=== PATIENT | female | born 2000 | race Caucasian/White ===

== ENCOUNTER → 2023-04-05 08:09 | Outpatient (BNVA) | payer OTHER, SELFPAY | PROVIDERS: Family Provider Family Medicine; Visit Provider Nurse Practitioner Family | DX: B07.8 Other viral warts (principal); L57.8 Other skin changes due to chronic exposure to nonionizing radiation; D22.62 Melanocytic nevi of left upper limb, including shoulder | CPT/HCPCS: 17110; 99203 ==

== ENCOUNTER → 2023-04-19 11:51 | Outpatient (BNVA) | payer OTHER, SELFPAY | PROVIDERS: Family Provider Family Medicine; Visit Provider Nurse Practitioner Family | DX: B07.8 Other viral warts (principal); L57.8 Other skin changes due to chronic exposure to nonionizing radiation; D22.62 Melanocytic nevi of left upper limb, including shoulder | CPT/HCPCS: 17110; 99213 ==

== ENCOUNTER → 2023-05-04 08:07 | Outpatient (BNVA) | payer OTHER, SELFPAY | PROVIDERS: Family Provider Family Medicine; PCP Family Medicine; Visit Provider Nurse Practitioner Family | DX: B07.8 Other viral warts (principal); L57.8 Other skin changes due to chronic exposure to nonionizing radiation; D22.4 Melanocytic nevi of scalp and neck | CPT/HCPCS: 17110; 99213 ==

== ENCOUNTER 2025-02-16 08:39 | Outpatient (CLI) | payer SELFPAY ==
[2025-02-16 08:48] VITALS: BMI 37.4
[2025-02-16 08:55] VITALS: BP 128/81; PULSE 78
[2025-02-16 09:10] VITALS: BP 134/84; PULSE 77
== END 2025-02-16 10:34 | disposition home or self-care (01) ==
LOC: OPOB 08:40 → OBGYN 08:41
PROVIDERS: PCP Family Medicine; Visit Provider Family Medicine
DX: O26.899 Other specified pregnancy related conditions, unspecified trimester (principal); Z3A.00 Weeks of gestation of pregnancy not specified; R10.9 Unspecified abdominal pain
CPT/HCPCS: 59025; 99211

== ENCOUNTER 2025-02-16 13:20 | Outpatient (CLI) | payer OTHER, SELFPAY ==
[2025-02-16 13:26] VITALS: BMI 37.4
[2025-02-16 13:33] VITALS: BP 136/67; PULSE 75
[2025-02-16 13:46] VITALS: BP 137/76; PULSE 76
[2025-02-16] MEDS: HYDROcodone-acetaminophen 5-325 mg Tablet 1 TAB PO (15:53)
[2025-02-16 15:59] VITALS: BP 141/72; PULSE 83
[2025-02-16 16:31] VITALS: RESP 18; TEMP 36.7
== END 2025-02-16 16:34 | disposition home or self-care (01) ==
LOC: OPOB 13:21 → OBGYN 13:23
PROVIDERS: PCP Family Medicine; Visit Provider Family Medicine
DX: O26.899 Other specified pregnancy related conditions, unspecified trimester (principal); Z3A.00 Weeks of gestation of pregnancy not specified; R10.9 Unspecified abdominal pain
CPT/HCPCS: 59025; 99211; J9999

== ENCOUNTER 2025-02-17 07:00 | Inpatient (IN) | payer SELFPAY ==
[2025-02-17] VITALS (91 sets, daily range): BP systolic 104–161; BP diastolic 52–99; PULSE 72–126; RESP 15–17; TEMP 36.7–36.8; O2SAT 95–97; BMI 37.5
[2025-02-17 01:16] LABS: Hematocrit 36.0 % (36-47); Hemoglobin 12.10 g/dL (11.27-16.99); Mean Corpuscular HGB Conc 33.6 g/dL (30-55); Mean Corpuscular Hemoglobin 26.9 pg (27-33); Mean Corpuscular Volume 80.0 fl (85-98); Nucleated Red Blood Cells % 0 %; Platelet Count 330 10^3/cmm (157-399); Red Blood Count 4.50 10^6/uL (3.85-5.65); White Blood Count 19.41 10^3/uL (3.29-11.43)
[2025-02-17 01:35] LABS: Alanine Aminotransferase 13 U/L (0-33); Albumin Level 3.6 g/dL (3.5-5.2); Alkaline Phosphatase 183 U/L (35-105); Anion Gap 18.7 (5-19); Aspartate Amino Transferase 21 U/L (0-32); Blood Urea Nitrogen 13 mg/dL (6-20); Calcium 8.8 mg/dL (8.5-10.5); Carbon Dioxide 15 mmol/L (22-29); Chloride 104 mmol/L (98-107); Creatinine Clr Calc Pharmacy 133.7069; Globulin 2.8 g/dL (1.3-4.6); Glucose 131 mg/dL (65-115); Osmolality Calculated 278 mOsm/kg (285-295); Potassium 4.7 mmol/L (3.5-5.1); Sodium 133 mmol/L (136-145); Total Protein 6.4 g/dL (6.6-8.7); Uric Acid 7.8 mg/dL (2.4-5.7)
[2025-02-17 01:39] LABS: UPRO/UCREAT Ratio 0.47 mg/mg CR
[2025-02-17] MEDS: ROPivacaine premix 200 MG/100 ML PREMIX 10 MG EPIDURAL (02:49)
--- NOTE | 2025-02-17 09:24 | PM.OPHPUD ---
Labor & Delivery H&P Update Date of Procedure: February 17, 2025 Date H&P Performed: 02/13/25 Changes to previous documentation: The patient presented to the hospital having consistent contractions and making cervical change Admission Diagnosis: 24-year-old 1 para 0 at 38 weeks estimated gestational age Planned procedure: Spontaneous vaginal delivery Other information: The patient is a 38-week female who has had a relatively unremarkable . She has had consistent care. Her blood type is O+. Her antibody screen was negative. Her glucose screen was negative. She is GBS negative. She is rubella nonimmune. The remainder of her infectious disease profile is within normal limits. Over the past couple of days, her contractions have been increasing in strength and frequency. She presented to the hospital twice yesterday with consistent contractions, but not making cervical change. She finally started demonstrating cervical change when she came to the hospital last night. She was also noted to have elevated blood pressures. A preeclamptic workup was performed and she was found to have an elevated protein creatinine ratio. She had no other signs of preeclampsia besides elevated blood pressure. Her blood pressures did resolve spontaneously after her epidural. It looks probable that her blood pressure was more a function of her pain than anything else. Related Problem List Diagnoses 1. 38 weeks gestation of : 2. Preeclampsia: A&P Assessment and plan 1. 38 weeks gestation of : We will continue to manage the patient conservatively as long as she makes progress. Status: Acute 2. Preeclampsia: At this point, the diagnosis of preeclampsia is in question. Since she only has an elevated protein creatinine ratio, but the blood pressure was likely secondary to pain and not to hypertension related to , and she has no other signs of end organ damage she probably does not meet criteria for preeclampsia. Regardless we will continue to monitor her. Since she does not have any severe features, there is no need for magnesium at this time even if without which she does have preeclampsia. Status: Acute PDMP PDMP Reviewed: Not Reviewed
[2025-02-17] MEDS: ROPivacaine premix 200 MG/100 ML PREMIX 13 MG EPIDURAL (10:29)
[2025-02-17] MEDS: oxytocin 30 UNIT/500 ML BAG IV (11:45)
--- NOTE | 2025-02-17 17:01 | PM.DELIVERY ---
Delivery Note: Date of delivery: February 17, 2025 Pre-delivery diagnoses: 24-year-old 1 at 38 weeks estimated gestational age presenting in active labor Post-delivery diagnoses: Status post spontaneous vaginal delivery Procedure: Spontaneous vaginal delivery Delivering Physician: Todd Davidson Estimated blood loss (mL): 150 Pre-Delivery Course: The patient presented to the hospital in active labor. Prior to epidural the patient was having elevated blood pressures multiple times. A preeclamptic workup was done and she was found to have an elevated protein creatinine ratio. An epidural was placed. Her blood pressure improved without intervention. She had spontaneous rupture of membranes 8 to 9 hours prior to delivery of the infant. The patient's contractions began to space out after epidural. Pitocin augmentation was added. She progressed to complete without difficulty. Delivery: DELIVERY: The patient progressed to complete without difficulty. She delivered a female with a weight of 7 pounds 1 ounce with Apgars of 8, 8. The baby was delivered from the MARY position and placed on the mother's abdomen. The cord was then clamped and cut. There was no nuchal cord. There was no meconium. The placenta and 3 vessel cord were delivered intact shortly thereafter. The perineum and vaginal vault were carefully examined. First-degree lacerations were noted on the labia minora on both the left and right side. She also had a very superficial posterior midline vaginal tear. The labial minora tears were repaired with 3-0 Vicryl in usual fashion. Both the mother and the baby were in stable condition. Post-Delivery Status: Good A&P Assessment and plan 1. 38 weeks gestation of : I anticipate routine care. 2. Spontaneous vaginal delivery: PDMP PDMP Reviewed: Not Reviewed Coding Level of Care Code Acute Code for Chg Fwd Diagnoses 38 weeks gestation of Z3A.38 Spontaneous vaginal delivery O80
[2025-02-17] MEDS: lidocaine 2% INJ 20 mL INJECTION (18:14)
[2025-02-18 00:30] VITALS: BP 115/56; PULSE 91; RESP 16
[2025-02-18 02:30] VITALS: BP 125/71; PULSE 76; RESP 15
[2025-02-18 04:01] LABS: Hematocrit 30.5 % (36-47); Hemoglobin 10.10 g/dL (11.27-16.99); Mean Corpuscular HGB Conc 33.1 g/dL (30-55); Mean Corpuscular Hemoglobin 27.3 pg (27-33); Mean Corpuscular Volume 82.4 fl (85-98); Platelet Count 257 10^3/cmm (157-399); Red Blood Count 3.70 10^6/uL (3.85-5.65); White Blood Count 19.66 10^3/uL (3.29-11.43)
[2025-02-18] MEDS: PRENATAL VIT NO.130/IRON/FOLIC 1 EACH TABLET PO (06:01)
--- NOTE | 2025-02-18 08:11 | P.DS_ITS ---
Discharge Providers CULTURAL HISTORIAN Date of Admission: 02/17/25 07:00 Date of Discharge: 02/18/25 Attending Provider at Admission: Todd Davidson MD Attending Provider at Discharge: Todd Davidson MD Primary Care Provider: Todd Davidson MD Diagnoses at Discharge Discharge Diagnosis 1. 38 weeks gestation of : 2. Spontaneous vaginal delivery: Reason for Visit Reason for Visit: contractions Hospital Course Hospital Course The patient presented to the hospital in active labor. An epidural was placed. Spontaneous rupture membranes occurred. Her labor was augmented with Pitocin. She progressed to complete without difficulty. Her delivery was relatively unremarkable. She had tears on her labia minora bilaterally as well as her minor tears. Her bleeding was within normal limits. Her pain was well- controlled. Breast-feeding was overall good. There are no concerns. Information Peripartum Data: Delivery Method: Vaginal Physical Exam Narrative: The patient is alert. She appears comfortable. Her heart has a regular rate and rhythm with no murmurs appreciated. Lungs are clear to auscultation bilaterally. Her fundus is firm and below the umbilicus. Urinary Catheter Management: Latex Free: Cath Placed During This Visit: yes, but has since been removed by the nurse Reason for Continuing Indwelling Catheter: Decision to DC Catheter Urinary Catheter Date of Insertion: 02/17/25 Urinary Catheter Time of Insertion: 03:30 Date Urinary Catheter Removed: 02/17/25 Time Urinary Catheter Discontinued: 15:00 Discharge Data Studies Completed and Pending Pending at discharge Category Date Time Status High Risk PP Hemorrhage Stat Lab 02/17/25 05:49 Received Laboratory Results WBC 19.66 10^3/uL (3.29-11.43) H 02/18/25 03:50 RBC 3.70 10^6/uL (3.85-5.65) L 02/18/25 03:50 Hgb 10.10 g/dL (11.27-16.99) L 02/18/25 03:50 Hct 30.5 % (36-47) L 02/18/25 03:50 MCV 82.4 fl (85-98) L 02/18/25 03:50 MCH 27.3 pg (27-33) 02/18/25 03:50 MCHC 33.1 g/dL (30-55) 02/18/25 03:50 RDW 13.9 % (12.1-15.1) 02/18/25 03:50 Plt Count 257 10^3/cmm (157-399) 02/18/25 03:50 MPV 9.8 fL (7.4-10.4) 02/18/25 03:50 Neut % (Auto) 86.3 % 02/17/25 01:00 ETL INFORMATICA DEVELOPER Lymph % (Auto) 8.2 % 02/17/25 01:00 ETL INFORMATICA DEVELOPER Nance % (Auto) 4.7 % 02/17/25 01:00 ETL INFORMATICA DEVELOPER Eos % (Auto) 0.0 % 02/17/25 01:00 ETL INFORMATICA DEVELOPER Baso % (Auto) 0.2 % 02/17/25 01:00 ETL INFORMATICA DEVELOPER Neut # (Auto) 16.76 10^3/uL (1.8-7.7) H 02/17/25 01:00 ETL INFORMATICA DEVELOPER Lymph # (Auto) 1.6 10^3/uL (0.8-4.8) 02/17/25 01:00 ETL INFORMATICA DEVELOPER Nance # (Auto) 0.9 10^3/uL (0.2-0.9) 02/17/25 01:00 ETL INFORMATICA DEVELOPER Eos # (Auto) 0.0 10^3/uL (0.0-0.8) 02/17/25 01:00 ETL INFORMATICA DEVELOPER Baso # (Auto) 0.0 10^3/uL (0.0-0.1) 02/17/25 01:00 ETL IN[employer]ICA DEVELOPER Nucleated RBC % (auto) 0 % 02/17/25 01:00 ETL INFORMATICA DEVELOPER Nucleated RBCs # 0.0 /100WBC 02/17/25 01:00 ETL IN[employer] DEVELOPER Sodium 133 mmol/L (136-145) L 02/17/25 01:00 ETL INFORMATICA DEVELOPER Potassium 4.7 mmol/L (3.5-5.1) 02/17/25 01:00 ETL IN[employer] DEVELOPER Chloride 104 mmol/L (98-107) 02/17/25 01:00 ETL [employer] DEVELOPER Carbon Dioxide 15 mmol/L (22-29) L 02/17/25 01:00 ETL IN[employer]ICA DEVELOPER Anion Gap 18.7 (5-19) 02/17/25 01:00 ETL INFORMATICA DEVELOPER BUN 13 mg/dL (6-20) 02/17/25 01:00 ETL INFORMATICA DEVELOPER Creatinine 0.9 mg/dL (0.5-0.9) 02/17/25 01:00 ETL INFORMATICA DEVELOPER GFR Calculation 76.3 mL/min (90-130) L 02/17/25 01:00 ETL INFORMATICA DEVELOPER Glucose 131 mg/dL (65-115) H 02/17/25 01:00 ETL INFORMATICA DEVELOPER Calculated Osmolality 278 mOsm/kg (285-295) L 02/17/25 01:00 ETL INFORMATICA DEVELOPER Uric Acid 7.8 mg/dL (2.4-5.7) H 02/17/25 01:00 ETL IN[employer] DEVELOPER Calcium 8.8 mg/dL (8.5-10.5) 02/17/25 01:00 ETL IN[employer] DEVELOPER Total Bilirubin 0.3 mg/dL (0.15-1.2) 02/17/25 01:00 ETL INFORMATICA DEVELOPER AST 21 U/L (0-32) 02/17/25 01:00 ETL INFORMATICA DEVELOPER ALT 13 U/L (0-33) 02/17/25 01:00 ETL INFORMATICA DEVELOPER Alkaline Phosphatase 183 U/L (35-105) H 02/17/25 01:00 ETL INFORMATICA DEVELOPER Total Protein 6.4 g/dL (6.6-8.7) L 02/17/25 01:00 ETL INFORMATICA DEVELOPER Albumin 3.6 g/dL (3.5-5.2) 02/17/25 01:00 ETL INFORMATICA DEVELOPER Globulin 2.8 g/dL (1.3-4.6) 02/17/25 01:00 ETL INFORMATICA DEVELOPER U Random Total Protein 149 mg/dL 02/17/25 01:00 ETL INFORMATICA DEVELOPER Urine Creatinine 316 mg/dL (28-217) H 02/17/25 01:00 ETL INFORMATICA DEVELOPER Protein/Creatinin Ratio 0.47 mg/mg CR 02/17/25 01:00 ETL INFORMATICA DEVELOPER Blood Type O Positive 02/17/25 01:00 ETL INFORMATICA DEVELOPER Rho(D) Type Rh positive 02/17/25 01:00 ETL INFORMATICA DEVELOPER Antibody Screen Negative 02/17/25 01:00 ETL INFORMATICA DEVELOPER Vitals Last Vital Signs Temp 98.3 F 02/17/25 13:30 Pulse 76 02/18/25 02:30 Resp 15 02/18/25 02:30 BP 125/71 02/18/25 02:30 Pulse Ox 97 02/17/25 20:30 O2 Del Method Room Air 02/17/25 00:56 Results Labs OB ([facility]): Blood Type O Positive 02/17/25 Antibody Screen Negative 02/17/25 Hct, (36-47) 30.5 % L Today Hgb, (11.27-16.99) 10.10 g/dL L Today Rho(D) Type Rh positive 02/17/25 Plt Count, (157-399) 257 10^3/cmm Today Uric Acid, (2.4-5.7) 7.8 mg/dL H 02/17/25 Discharge Plan Discharge Patient Disposition: Home Condition: Stable Prescriptions: New ibuprofen 800 mg Tablet 800 mg PO TID Qty: 45 0RF Continued 28-800 mg-mcg Tablet 1 tab PO DAILY Discharge Order = DC NOW: Discharge Order (Routine); Ordered 02/18/25 Ordered By: Todd Davidson Referrals: Todd Davidson MD [Primary Care Provider, [facility]] - 6 Weeks Discharge Diet: Usual diet Discharge Activity: Limit activity as instructed Patient Instructions: Opioid Safety, Patient Portal & Omer Instructions Discharge Attestations CULTURAL HISTORIAN Time Spent in Discharge Care*: less than 30 min Coding Level of Care Code Acute Code for Chg Fwd Diagnoses 38 weeks gestation of Z3A.38 Spontaneous vaginal delivery O80
--- NOTE | 2025-02-18 08:11 | PM.OBGYDC ---
Discharge Providers VP INTEGRATION Date of Admission: 02/17/25 07:00 Date of Discharge: 02/18/25 Attending Provider at Admission: Todd Davidson MD Attending Provider at Discharge: Todd Davidson MD Primary Care Provider: Todd Davidson MD Diagnoses at Discharge Discharge Diagnosis 1. 38 weeks gestation of : 2. Spontaneous vaginal delivery: Reason for Visit Reason for Visit: contractions Hospital Course Hospital Course The patient presented to the hospital in active labor. An epidural was placed. Spontaneous rupture membranes occurred. Her labor was augmented with Pitocin. She progressed to complete without difficulty. Her delivery was relatively unremarkable. She had tears on her labia minora bilaterally as well as her minor tears. Her bleeding was within normal limits. Her pain was well-controlled. Breast-feeding was overall good. There are no concerns. Information Peripartum Data: Delivery Method: Vaginal Physical Exam Narrative: The patient is alert. She appears comfortable. Her heart has a regular rate and rhythm with no murmurs appreciated. Lungs are clear to auscultation bilaterally. Her fundus is firm and below the umbilicus. Urinary Catheter Management: Latex Free: Cath Placed During This Visit: yes, but has since been removed by the nurse Reason for Continuing Indwelling Catheter: Decision to DC Catheter Urinary Catheter Date of Insertion: 02/17/25 Urinary Catheter Time of Insertion: 03:30 Date Urinary Catheter Removed: 02/17/25 Time Urinary Catheter Discontinued: 15:00 Discharge Data Studies Completed and Pending Pending at discharge Category Date Time Status High Risk PP Hemorrhage Stat Lab 02/17/25 05:49 Received Laboratory Results WBC 19.66 10^3/uL (3.29-11.43) H 02/18/25 03:50 RBC 3.70 10^6/uL (3.85-5.65) L 02/18/25 03:50 Hgb 10.10 g/dL (11.27-16.99) L 02/18/25 03:50 Hct 30.5 % (36-47) L 02/18/25 03:50 MCV 82.4 fl (85-98) L 02/18/25 03:50 MCH 27.3 pg (27-33) 02/18/25 03:50 MCHC 33.1 g/dL (30-55) 02/18/25 03:50 RDW 13.9 % (12.1-15.1) 02/18/25 03:50 Plt Count 257 10^3/cmm (157-399) 02/18/25 03:50 MPV 9.8 fL (7.4-10.4) 02/18/25 03:50 Neut % (Auto) 86.3 % 02/17/25 01:00 BANQUET STEWARDESS Lymph % (Auto) 8.2 % 02/17/25 01:00 BANQUET STEWARDESS [place] % (Auto) 4.7 % 02/17/25 01:00 BANQUET STEWARDESS Eos % (Auto) 0.0 % 02/17/25 01:00 BANQUET STEWARDESS Baso % (Auto) 0.2 % 02/17/25 01:00 BANQUET STEWARDESS Neut # (Auto) 16.76 10^3/uL (1.8-7.7) H 02/17/25 01:00 BANQUET STEWARDESS Lymph # (Auto) 1.6 10^3/uL (0.8-4.8) 02/17/25 01:00 BANQUET STEWARDESS [place] # (Auto) 0.9 10^3/uL (0.2-0.9) 02/17/25 01:00 BANQUET STEWARDESS Eos # (Auto) 0.0 10^3/uL (0.0-0.8) 02/17/25 01:00 BANQUET STEWARDESS Baso # (Auto) 0.0 10^3/uL (0.0-0.1) 02/17/25 01:00 BANQUET STEWARDESS Nucleated RBC % (auto) 0 % 02/17/25 01:00 BANQUET STEWARDESS Nucleated RBCs # 0.0 /100WBC 02/17/25 01:00 BANQUET STEWARDESS Sodium 133 mmol/L (136-145) L 02/17/25 01:00 BANQUET STEWARDESS Potassium 4.7 mmol/L (3.5-5.1) 02/17/25 01:00 BANQUET STEWARDESS Chloride 104 mmol/L (98-107) 02/17/25 01:00 BANQUET STEWARDESS Carbon Dioxide 15 mmol/L (22-29) L 02/17/25 01:00 BANQUET STEWARDESS Anion Gap 18.7 (5-19) 02/17/25 01:00 BANQUET STEWARDESS BUN 13 mg/dL (6-20) 02/17/25 01:00 BANQUET STEWARDESS Creatinine 0.9 mg/dL (0.5-0.9) 02/17/25 01:00 BANQUET STEWARDESS GFR Calculation 76.3 mL/min (90-130) L 02/17/25 01:00 BANQUET STEWARDESS Glucose 131 mg/dL (65-115) H 02/17/25 01:00 BANQUET STEWARDESS Calculated Osmolality 278 mOsm/kg (285-295) L 02/17/25 01:00 BANQUET STEWARDESS Uric Acid 7.8 mg/dL (2.4-5.7) H 02/17/25 01:00 BANQUET STEWARDESS Calcium 8.8 mg/dL (8.5-10.5) 02/17/25 01:00 BANQUET STEWARDESS Total Bilirubin 0.3 mg/dL (0.15-1.2) 02/17/25 01:00 BANQUET STEWARDESS AST 21 U/L (0-32) 02/17/25 01:00 BANQUET STEWARDESS ALT 13 U/L (0-33) 02/17/25 01:00 BANQUET STEWARDESS Alkaline Phosphatase 183 U/L (35-105) H 02/17/25 01:00 BANQUET STEWARDESS Total Protein 6.4 g/dL (6.6-8.7) L 02/17/25 01:00 BANQUET STEWARDESS Albumin 3.6 g/dL (3.5-5.2) 02/17/25 01:00 BANQUET STEWARDESS Globulin 2.8 g/dL (1.3-4.6) 02/17/25 01:00 BANQUET STEWARDESS U Random Total Protein 149 mg/dL 02/17/25 01:00 BANQUET STEWARDESS Urine Creatinine 316 mg/dL (28-217) H 02/17/25 01:00 BANQUET STEWARDESS Protein/Creatinin Ratio 0.47 mg/mg CR 02/17/25 01:00 BANQUET STEWARDESS Blood Type O Positive 02/17/25 01:00 BANQUET STEWARDESS Rho(D) Type Rh positive 02/17/25 01:00 BANQUET STEWARDESS Antibody Screen Negative 02/17/25 01:00 BANQUET STEWARDESS Vitals Last Vital Signs Temp 98.3 F 02/17/25 13:30 Pulse 76 02/18/25 02:30 Resp 15 02/18/25 02:30 BP 125/71 02/18/25 02:30 Pulse Ox 97 02/17/25 20:30 O2 Del Method Room Air 02/17/25 00:56 Results Labs OB ([facility]): Blood Type O Positive 02/17/25 Antibody Screen Negative 02/17/25 Hct, (36-47) 30.5 % L Today Hgb, (11.27-16.99) 10.10 g/dL L Today Rho(D) Type Rh positive 02/17/25 Plt Count, (157-399) 257 10^3/cmm Today Uric Acid, (2.4-5.7) 7.8 mg/dL H 02/17/25 Discharge Plan Discharge Patient Disposition: Home Condition: Stable Prescriptions: New ibuprofen 800 mg Tablet 800 mg PO TID Qty: 45 0RF Continued 28-800 mg-mcg Tablet 1 tab PO DAILY Discharge Order = DC NOW: Discharge Order (Routine); Ordered 02/18/25 Ordered By: Todd Davidson Referrals: Todd Davidson MD [Primary Care Provider, [facility]] - 6 Weeks Discharge Diet: Usual diet Discharge Activity: Limit activity as instructed Patient Instructions: Opioid Safety, Patient Portal & Omer Instructions Discharge Attestations VP INTEGRATION Time Spent in Discharge Care*: less than 30 min Coding Level of Care Code Acute Code for Chg Fwd Diagnoses 38 weeks gestation of Z3A.38 Spontaneous vaginal delivery O80
[2025-02-18 10:00] VITALS: BP 127/96; PULSE 74; RESP 16; TEMP 36.8
--- NOTE | 2025-02-18 13:28 | ANE.PACU2 ---
Inpatient post-anesthesia follow up: Airway intact: Yes Vital signs: Temperature 98.2 F Pulse Rate 72 Respiratory Rate 16 Blood Pressure 120/72 Pulse Oximetry 100 Oxygen Delivery Me thod Room Air Oxygen Flow Rate Fraction of Inspir ed Oxygen Hydration adequate: Yes Nausea and vomiting: No Pain level: 1 Mental status: Baseline Epidural Start/End: Epidural Start Date: 02/17/25 Epidural Start Time: 02:40 Epidural End Date: 02/18/25 Epidural End Time: 17:01
[2025-02-18 16:00] VITALS: BP 126/69; PULSE 76; RESP 18; TEMP 36.9
[2025-02-18 18:17] VITALS: BP 120/72; PULSE 72; RESP 16; TEMP 36.8; O2SAT 100
[2025-02-18 18:18] VITALS: BP 120/72; PULSE 72; RESP 16; TEMP 36.8; O2SAT 100
[2025-02-20 08:30] LABS: High Risk PP Hemorrhage BBK Notified
== END 2025-02-18 18:40 | disposition home or self-care (01) | DRG 807 ==
LOC: OPOB 16:17 → OBGYN 16:17
PROVIDERS: Admitting Provider Family Medicine; PCP Family Medicine; Visit Provider Family Medicine
DX: O99.42 Diseases of the circulatory system complicating childbirth (principal); Z37.0 Single live birth; Z3A.38 38 weeks gestation of pregnancy; O70.0 First degree perineal laceration during delivery; R03.0 Elevated blood-pressure reading, without diagnosis of hypertension; O99.892 Other specified diseases and conditions complicating childbirth; O12.14 Gestational proteinuria, complicating childbirth
CPT/HCPCS: 36415; 51702; 59025; 59409; 80053; 82570; 84156; 84550; 85025; 85027; 86850; 86900; 99211; J2590; J2795; J7120; J7121; J9999

== ENCOUNTER 2025-02-19 21:26 | Observation (INO) | payer OTHER, SELFPAY ==
[2025-02-19] VITALS (10 sets, daily range): BP systolic 128–155; BP diastolic 58–105; PULSE 75–99; RESP 16–26; TEMP 36.9; O2SAT 94–100
--- OUTSIDE RECORDS SUMMARY | 2025-02-19 21:31 | XMS_ITS | Continuity of Care Document ---
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 Plan of Treatment Reminders Order Date Submit Date Provider Last Modified By Organization Details Last Modified Time Details Appointments POST-PA RTUM VISIT 025 11:00AM Delia Allred MD Not available Not available Not available Lab None recorde d. Referral None recorde d. Procedures None recorde d. Surgeries None recorde d. Imaging None recorde d. Medication Orders None recorde d. Patient TargetsNo targets recorded. Patient InstructionsNo instructions recorded. Reason for Referral None Reported. Results Created Date Observation Date Name Description Value Unit Range Abnormal Flag Note LastModifiedBy Organization Detail LastModifiedTime 08/29/1908/29/2024 URINA LYSIS , COMPL ETE color YELLOW yellow normal Not Available [address], [address], 08/30/2024 00:55:17 08/29/19 25 08/29/2024 URINA LYSIS , COMPL ETE appearance CLEAR clear normal Not Available [facility] [address], [address], 08/30/2024 00:55:17 08/29/19 25 08/29/2024 URINA LYSIS , COMPL ETE specific gravity 1.013 1.001- 1.035 normal Not Available [facility] [address] [place], [address], 08/30/2024 00:55:17 08/29/1908/29/2024 URINA LYSIS , COMPL ETE pH 8.0 5.0-8. 0 normal Not Available [facility] [address], [address], 08/30/2024 00:55:17 08/29/1908/29/2024 URINA LYSIS , COMPL ETE glucose NEGATI VE negati ve normal Not Available [facility] [address], [address], 08/30/2024 00:55:17 08/29/1908/29/2024 URINA LYSIS , COMPL ETE bilirubin NEGATI VE negati ve normal Not Available [facility] [address], [address], 08/30/2024 00:55:17 08/29/1908/29/2024 URINA LYSIS , COMPL ETE ketones NEGATI VE negati ve normal Not Available [facility] [address], [address], 08/30/2024 00:55:17 08/29/1908/29/2024 URINA LYSIS , COMPL ETE occult blood NEGATI VE negati ve normal Not Available [facility] [address], [address], 08/30/2024 00:55:17 08/29/1908/29/2024 URINA LYSIS , COMPL ETE protein NEGATI VE negati ve normal Not Available [facility] [address], [address], 08/30/2024 00:55:17 08/29/1908/29/2024 URINA LYSIS , COMPL ETE nitrite NEGATI VE negati ve normal Not Available [facility] [address], [address], 08/30/2024 00:55:17 08/29/1908/29/2024 URINA LYSIS , COMPL ETE leukocyte esterase NEGATI VE negati ve normal Not Available [address], [address], 08/30/2024 00:55:17 08/29/1908/29/2024 URINA LYSIS , COMPL ETE WBC NONE SEEN /hpf < or = 5 normal Not Available [address], [address], 08/30/2024 00:55:17 08/29/1908/29/2024 URINA LYSIS , COMPL ETE RBC NONE SEEN /hpf < or = 2 normal Not Available [address], [address], 08/30/2024 00:55:17 08/29/19 25 08/29/2024 URINA LYSIS , COMPL ETE squamous epithelial cells 10-20 /hpf < or = 5 abnormal Not Available [address], [address], 08/30/2024 00:55:17 08/29/1908/29/2024 URINA LYSIS , COMPL ETE bacteria MODERA TE /hpf none seen abnormal Not Available [address], [address], 08/30/2024 00:55:17 08/29/1908/29/2024 URINA LYSIS , COMPL ETE hyaline cast 0-5 /lpf none seen abnormal Not Available [address], [address], 08/30/2024 00:55:17 08/29/1908/29/2024 URINA LYSIS , COMPL ETE note This urine was jocelin zed for the prese nce of WBC, RBC, bacte rob, casts , and other forme d eleme nts. Only those eleme nts seen were repor derrick. Not Available [address], [address], 08/30/2024 00:55:17 08/29/1908/29/2024 CBC (INCL UDES DIFF/ PLT) white blood cell count 9.1 thous and/u L 3.8-10 .8 normal Not Available [facility] [address], [address], 08/30/2024 00:55:19 08/29/1908/29/2024 CBC (INCL UDES DIFF/ PLT) red blood cell count 4.61 dickson on/uL 3.80-5 .10 normal Not Available [address], [address], 08/30/2024 00:55:19 08/29/1908/29/2024 CBC (INCL UDES DIFF/ PLT) hemoglobin 12.9 g/dL 11.7-1 5.5 normal Not Available [address], [address], 08/30/2024 00:55:19 08/29/1908/29/2024 CBC (INCL UDES DIFF/ PLT) hematocrit 40.4 % 35.0-4 5.0 normal Not Available [address], [address], 08/30/2024 00:55:19 08/29/1908/29/2024 CBC (INCL UDES DIFF/ PLT) MCV 87.6 fL 80.0-1 00.0 normal Not Available [facility] [address], [address], 08/30/2024 00:55:19 08/29/1908/29/2024 CBC (INCL UDES DIFF/ PLT) MCH 28.0 pg 27.0-3 3.0 normal Not Available [facility] [address], [address], 08/30/2024 00:55:19 08/29/1908/29/2024 CBC (INCL UDES DIFF/ PLT) MCHC 31.9 g/dL 32.0-3 6.0 low For adult s, a sligh t decre ase in the calcu lated MCHC value (in the range of 30 to 32 g/dL) is most likel y not clini philippe signi leonard t; haim er, it shoul d be inter prete d with cauti on in [facility] n with other red cell yuri eters and the patie nt's clini mirna condi tion. Not Available [facility] [address], [address], 08/30/2024 00:55:19 08/29/1908/29/2024 CBC (INCL UDES DIFF/ PLT) RDW 13.3 % 11.0-1 5.0 normal Not Available [address], [address], 08/30/2024 00:55:19 08/29/1908/29/2024 CBC (INCL UDES DIFF/ PLT) platelet count 281 thous and/u L 140-40 0 normal Not Available [facility] [address], [address], 08/30/2024 00:55:19 08/29/1908/29/2024 CBC (INCL UDES DIFF/ PLT) MPV 9.7 fL 7.5-12 .5 normal Not Available [facility] [address], [address], 08/30/2024 00:55:19 08/29/1908/29/2024 CBC (INCL UDES DIFF/ PLT) absolute neutrophils 7280 cells /uL 1500-7 800 normal Not Available [facility] [address], [address], 08/30/2024 00:55:19 08/29/1908/29/2024 CBC (INCL UDES DIFF/ PLT) absolute lymphocytes 1247 cells /uL 850-39 00 normal Not Available [address], [address], 08/30/2024 00:55:19 08/29/1908/29/2024 CBC (INCL UDES DIFF/ PLT) absolute monocytes 455 cells /uL 200-95 0 normal Not Available [address], [address], 08/30/2024 00:55:19 08/29/1908/29/2024 CBC (INCL UDES DIFF/ PLT) absolute eosinophils 82 cells /uL 15-500 normal Not Available [address], [address], 08/30/2024 00:55:19 08/29/1908/29/2024 CBC (INCL UDES DIFF/ PLT) absolute basophils 36 cells /uL 0-200 normal Not Available [facility] [address], [address], 08/30/2024 00:55:19 08/29/1908/29/2024 CBC (INCL UDES DIFF/ PLT) neutrophils 80 % normal Not Available [address], [address], 08/30/2024 00:55:19 08/29/1908/29/2024 CBC (INCL UDES DIFF/ PLT) lymphocytes 13.7 % normal Not Available [facility] [address], [address], 08/30/2024 00:55:19 08/29/1908/29/2024 CBC (INCL UDES DIFF/ PLT) monocytes 5.0 % normal Not Available [facility] [address], [address], 08/30/2024 00:55:19 08/29/19 25 08/29/2024 CBC (INCL UDES DIFF/ PLT) eosinophils 0.9 % normal Not Available [address], [address], 08/30/2024 00:55:19 08/29/19 25 08/29/2024 CBC (INCL UDES DIFF/ PLT) basophils 0.4 % normal Not Available [address], [address], 08/30/2024 00:55:19 08/29/1908/29/2024 HEPAT ITIS B SURFA CE ANTIG EN W/REF L CONFI RM hepatitis B surface antigen NON-RE ACTIVE non-re active normal For addit ional infor yuliya martines, mariel e refer to http: //[facility] stdia gnost ics.c om/fa q/FAQ 202 (This link is being provi ded for infor matio nal/ educa germán l purpo ses only. ) Not Available [address], [address], 08/30/2024 00:55:19 08/29/1908/29/2024 HEPAT ITIS C AB W/REF L TO HCV RNA, QN, PCR hepatitis C antibody NON-RE ACTIVE non-re active normal HCV antib phillip was non-r eacti ve. There is no labor atory evide nce of HCV infec tion. In most cases , no furth er actio n is requi red. Howev er, if recen t HCV expos ure is suspe cted, a test for HCV RNA (test code 61825 ) is sugge sted. For addit ional infor matmaisha n pleas e refer to http: //[facility] conrad.que stdia gnost ics.c om/fa q/FAQ 22v1 (This link is being provi ded for infor matio nal/ educa germán l purpo ses only. ) Not Available [address], [address], 08/30/2024 00:55:21 08/29/1908/29/2024 RUBEL LA AB (IGG) , IMMUN E STATU S rubella Ab (IgG), immune status <0.90 index low Index Inter preta tion ----- ----- ----- ---- <0.90 Not consi stent with immun ity 0.90- 0.99 Equiv ocal > or = 1.00 Consi stent with immun ity The prese nce of rubel la IgG antib phillip sugge sts immun izati on or past or curre nt infec tion with rubel la virus . Not Available [facility] [address] [place], [address], 08/30/2024 00:55:21 08/29/1908/29/2024 HIV 1/2 ANTIG EN/AN TIBOD Y,FOU RTH GENER ATION W/RFL HIV Ag/Ab, 4TH gen NON-RE ACTIVE non-re active normal HIV-1 antig en and HIV-1 /HIV- 2 antib odies were not detec derrick. There is no labor atory evide nce of HIV infec tion. PLEAS E NOTE: This infor matio n has been discl osed to you from recor ds whose confi denti ality may be prote cted by state law. If your state requi res such prote ction , then the state law prohi bits you from abhijit hernandez furth er discl osure of the infor matio n witho ut the speci fic writt en conse nt of the perso n to whom it perta ins, or as other cadena permi tted by law. A gener al autho rizat ion for the relea se of medic al or other infor matio n is NOT suffi cient for this purpo se. For addit ional infor matio n pleas e refer to http: //tara mengque stdia gnost [facility].c om/fa q/FAQ 106 (This link is being provi ded for infor matio nal/ educa germán l purpo ses only. ) The perfo rmanc e of this assay has not been clini philippe valid ated in patie nts less than 2 years old. Not Available [facility] [address], [address], 08/30/2024 00:55:22 08/29/1908/29/2024 RPR (DX) W/REF L TITER AND T. PALLI DUM AB, IA RPR (DX) w/refl titer and confirmatory testing NON-RE ACTIVE non-re active normal No labor atory evide nce of syphi lis. If recen t expos ure is suspe cted, submi t a new sampl e in 2-4 weeks . Not Available [facility] [address], [address], 08/30/2024 00:55:23 08/29/1908/29/2024 ANTIB PHILLIP SCREE N, RBC W/REF L ID, TITER AND AG antibody screen, RBC w/refl id, titer and Ag NO ANTIBO DIES DETECT ED normal Refer ence range No antib odies detec derrick This assay is a scree rowan test for the detec tion of red blood cell antib odies . The test is not to be used for pretr ansfu arnoldo scree rowan or for the medic al manag ement of an alloi mmuni zed pregn richie. Not Available [facility] [address] [place], [address], 08/30/2024 00:55:24 08/29/1908/29/2024 ABO GROUP AND RH TYPE ABO group O Not Available [facility] [address] [place], [address], 08/30/2024 00:55:25 08/29/1908/29/2024 ABO GROUP AND RH TYPE Rh type RH(D) POSITI VE For addit ional infor mariel crawford e refer to http: //[facility] braulio Pederson stDia gnost ics.c om/fa q/FAQ 111 (This link is being provi ded for infor yuliya lezama/ analy ba purpo ses only. ) Not Available [facility] [address] [address] [address], [place], [address], 08/30/2024 00:55:25 08/29/1908/29/2024 DRUG MONIT OR, PANEL 1, SCREE N, URINE amphetamines NEGATI VE NG/mL <500 See Note A See Note A Not Available [facility] [address] [address] [address], [place], [address], 08/30/2024 00:55:26 08/29/1908/29/2024 DRUG MONIT OR, PANEL 1, SCREE N, URINE barbiturates NEGATI VE NG/mL <300 See Note A See Note A Not Available [facility] [address] [address] [address], [place], [address], 08/30/2024 00:55:26 08/29/1908/29/2024 DRUG MONIT OR, PANEL 1, SCREE N, URINE benzodiazepi elias NEGATI VE NG/mL <100 See Note A See Note A Not Available [facility] [address] [address] [address], [place], [address], 08/30/2024 00:55:26 08/29/1908/29/2024 DRUG MONIT OR, PANEL 1, SCREE N, URINE cocaine metabolite NEGATI VE NG/mL <150 See Note A See Note A Not Available [facility] [address] [address] [address], [place], [address], 08/30/2024 00:55:26 08/29/1908/29/2024 DRUG MONIT OR, PANEL 1, SCREE N, URINE marijuana metabolite NEGATI VE NG/mL <20 See Note A See Note A Not Available [facility] [address] [address] [address], [place], [address], 08/30/2024 00:55:26 08/29/1908/29/2024 DRUG MONIT OR, PANEL 1, SCREE N, URINE methadone metabolite NEGATI VE NG/mL <100 See Note A See Note A Not Available [address] [address] [address], [place], [address], 08/30/2024 00:55:26 08/29/1908/29/2024 DRUG MONIT OR, PANEL 1, SCREE N, URINE opiates NEGATI VE NG/mL <100 See Note A See Note A Not Available [address] [address] [address], [place], [address], 08/30/2024 00:55:26 08/29/1908/29/2024 DRUG MONIT OR, PANEL 1, SCREE N, URINE oxycodone NEGATI VE NG/mL <100 See Note A See Note A Not Available [address] [address] [address], [place], [address], 08/30/2024 00:55:26 08/29/1908/29/2024 DRUG MONIT OR, PANEL 1, SCREE N, URINE phencyclidin e NEGATI VE NG/mL <25 See Note A See Note A Not Available [address] [address] [address], [place], [address], 08/30/2024 00:55:26 08/29/1908/29/2024 DRUG MONIT OR, PANEL 1, SCREE N, URINE creatinine 75.8 mg/dL > or = 20.0 Not Available [address] [address] [address], [place], [address], 08/30/2024 00:55:26 08/29/19 25 08/29/2024 DRUG MONIT OR, PANEL 1, SCREE N, URINE pH 8.0 4.5-9. 0 Not Available [address] [address] [address], [place], [address], 08/30/2024 00:55:26 08/29/19 25 08/29/2024 DRUG MONIT OR, PANEL 1, SCREE N, URINE oxidant NEGATI VE mcg/m L <200 Not Available [address] [address] [place], [address], 08/30/2024 00:55:26 08/29/1908/29/2024 DRUG MONIT ORING TEMPL ATE notes and comments This drug testi ng is for medic al treat ment only. Jocelin sis was perfo rmed as non-f orens ic testi ng and these resul ts shoul d be used only by [facility] provi ders to rende r diagn osis or treat ment, or to monit or progr ess of medic al condi tions . Note A: The resul ts are presu mptiv e; based only on tu irving, and they have not been confi rmed by a defin itive allen bell. [facility] Provi ders needi ng Inter preta tion nae tance , pleas e conta ct us at 1.877 .40.R XTOX (1.87 [phone] ) M-F, 8am to 10pm EST Not Available [facility] [address] [address] [address] , [place], [address], 08/30/2024 00:55:27 08/29/1908/29/2024 CULTU RE, URINE , ROUTI NE culture, urine, routine SEE NOTE CULTU RE, URINE , ROUTI NE Micro Numbe r: [id number] Test Statu s: Final Speci men Sourc e: Urine Speci men Quali ty: Adequ ate Resul t: Mixed genit al glen isola derrick. These super ficia l bacte rob are not indic ative of a urina ry tract infec tion. No furth er organ ism ident ifica tion is warra nted on this speci men. If clini philippe indic ated, recol lect clean -catc h, mid-s tream urine and trans wendy immed iatel y to Urine Cultu re Trans port Tube. Not Available [facility] [address] [address] , [place], [address], 08/30/2024 00:55:27 08/29/1908/30/2024 THINP REP TIS PAP (REFL ) HPV MRNA E6/E7 clinical information: normal Pregn ant Not Available [address], [address], 08/30/2024 17:04:17 08/29/19 25 08/30/2024 THINP REP TIS PAP (REFL ) HPV MRNA E6/E7 LMP: normal NA Not Available [address], [address], 08/30/2024 17:04:17 08/29/19 25 08/30/2024 THINP REP TIS PAP (REFL ) HPV MRNA E6/E7 prev. Pap: normal NA Not Available [address], [address], 08/30/2024 17:04:17 08/29/19 25 08/30/2024 THINP REP TIS PAP (REFL ) HPV MRNA E6/E7 prev. BX: normal NA Not Available [address], [address], 08/30/2024 17:04:17 08/29/19 25 08/30/2024 THINP REP TIS PAP (REFL ) HPV MRNA E6/E7 source: normal Cervi x, Endoc ervix Not Available [address], [address], 08/30/2024 17:04:17 08/29/19 25 08/30/2024 THINP REP TIS PAP (REFL ) HPV MRNA E6/E7 statement of adequacy: normal Satis facto ry for evalu ation . Endoc ervic al/tr ansfo rmati on zone compo nent prese nt. Not Available [address], [address], 08/30/2024 17:04:17 08/29/19 25 08/30/2024 THINP REP TIS PAP (REFL ) HPV MRNA E6/E7 interpretati on/result: normal Cytol ogy Resul ts: Negat juanito for intra epith elial lesio n or joankenney gama . Not Available [address] [address] [place], [address], 08/30/2024 17:04:17 08/29/1908/30/2024 THINP REP TIS PAP (REFL ) HPV MRNA E6/E7 comment: normal This Pap test has been evalu ated with compu matute techn ology . Not Available [facility] [address] [address] [place], [address], 08/30/2024 17:04:17 08/29/1908/30/2024 THINP REP TIS PAP (REFL ) HPV MRNA E6/E7 cytotechnolo gist: normal BES, CT( CP) CT scree rowan locat ion: [address] [place] [address] Not Available [facility] [address] [address] [place], [address], 08/30/2024 17:04:17 08/29/19 25 08/30/2024 THINP REP TIS PAP (REFL ) HPV MRNA E6/E7 comment EXPLA NATOR Y NOTE: The Pap is a scree rowan test for cervi mirna cance r. It is not a diagn ostic test and is subje ct to false negat juanito and false posit juanito resul ts. It is most relia ble when a satis facto ry sampl e, regul lesli obtai cherise, is submi tted with relev ant clini mirna findi ngs and histo ry, and when the Pap resul t is evalu ated along with histo gladys and curre nt clini mirna infor matio n. Not Available [address] [address] [place], [address], 08/30/2024 17:04:17 08/29/1908/28/2024 CT + NG + TV, DNA, urine /swab Chlamydia negati ve Not Available [facility] ([facility]) [address] [place], [address], 08/28/2024 10:07:13 08/29/19 25 08/28/2024 CT + NG + TV, DNA, urine /swab Gonorrhea negati ve Not Available [facility] ([facility]) [address] [place], [address], 08/28/2024 10:07:13 08/29/19 25 08/28/2024 CT + NG + TV, DNA, urine /swab Trichomonas negati ve Not Available [facility] ([facility]) [address] [place], [address], 08/28/2024 10:07:13 09/01/19 25 08/31/2024 rapid strep group A, throa t Strep negati ve Not Available [facility] ([facility]) [address] [place], [address], 08/31/2024 10:22:57 09/18/19 25 09/19/2024 CULTU RE, URINE , ROUTI NE culture, urine, routine SEE NOTE abnormal CULTU RE, URINE , ROUTI NE Micro Numbe r: [id number] Test Statu s: Final Speci men Sourc e: Urine , clean catch Speci men Quali ty: Adequ ate Resul t: Great er than 100,0 00 CFU/m L of Klebs iella pneum oniae K.pne umoni ae ----- ----- ----- - INT ML AMOX/ CLAVU LANAT E S <=2 AMP/S ULBAC ESQUIVEL S 8 CEFAZ GREG NR <=4 2 CEFEP PAMELA S <=0.1 2 CEFTA ZIDIM E S <=1 CEFTR IAXON E S <=0.2 5 CIPRO FLOXA DONALDO S <=0.0 6 GENTA MICIN S <=1 IMIPE NEM S 0.5 LEVOF LOXAC IN S <=0.1 2 MEROP ENEM S <=0.2 5 NITRO FURAN TOIN R 128 PIP/T AZOBA CTAM S <=4 TRIME THOPR IM/SUMMERS LFA S <=20 S = Susce ptibl e I = Inter media te R = Resis tant NS = Not susce ptibl e SDD = Susce ptibl e Dose Depen dent * = Not Teste d NR = Not Repor derrick NN = See Thera py Comme nts THERA PY COMME NTS Note 1: For infec tions other than uncom plica derrick UTI cause d by E. coli, K. pneum oniae or P. mirab ilis: Cefaz greg is resis tant if ML > or = 8 mcg/m L. (Dist ingui shing susce ptibl e versu s inter media te for isola shereen with ML < or = 4 mcg/m L requi res addit ional testi ng.) Note 2: For uncom plica derrick UTI cause d by E. coli, K. pneum oniae or P. mirab ilis: Cefaz greg is susce ptibl e if ML <32 mcg/m L and predi cts susce ptibl e to the oral agent s cefac jose, cefdi anuradha, cefpo doxim e, cefpr ozil, cefur oxime , cepha lexin and lorac arbef . Not Available [facility] [address] [place] [address], [address], 09/19/2024 15:26:40 09/18/19 25 09/17/2024 urina lysis , dipst ick Leukocytes Small Not Available [facility] ([facility]) [address] [place] [address], [address], 09/17/2024 12:30:19 09/18/19 25 09/17/2024 urina lysis , dipst ick Nitrite positi ve Not Available [facility] ([facility]) [address] [place] [address], [address], 09/17/2024 12:30:19 09/18/19 25 09/17/2024 urina lysis , dipst ick Urobilinogen 1 Not Available [facility] ([facility]) [address] [place] [address], [address], 09/17/2024 12:30:19 09/18/19 25 09/17/2024 urina lysis , dipst ick Protein Negati ve Not Available [facility] ([facility]) [address] [place], [address], 09/17/2024 12:30:19 09/18/19 25 09/17/2024 urina lysis , dipst ick pH 5.0 Not Available [facility] ([facility] [address] [facility]) [address] [place], [address], 09/17/2024 12:30:19 09/18/19 25 09/17/2024 urina lysis , dipst ick Blood Non-He molyze d: Trace Not Available [facility] ([facility]) [address] [place], [address], 09/17/2024 12:30:19 09/18/19 25 09/17/2024 urina lysis , dipst ick Specific [place] 1.005 Not Available [facility] ( [facility]) [address] [place], [address], 09/17/2024 12:30:19 09/18/19 25 09/17/2024 urina lysis , dipst ick Ketone Negati ve Not Available [facility] ([facility]) [address] [place], [address], 09/17/2024 12:30:19 09/18/19 25 09/17/2024 urina lysis , dipst ick Bilirubin Negati ve Not Available [facility] ([facility]) [address] [place], [address], 09/17/2024 12:30:19 09/18/19 25 09/17/2024 urina lysis , dipst ick Glucose 100 Not Available [facility] ([facility] [address] [facility]) [address] [place], [address], 09/17/2024 12:30:19 09/18/19 25 09/17/2024 urina lysis , dipst ick Appearance Clear Not Available [facility] ([facility]) [address] [place], [address], 09/17/2024 12:30:19 09/18/19 25 09/17/2024 urina lysis , dipst ick Color [place] Not Available [facility] ([facility] [address]) [address] [place], [address], 09/17/2024 12:30:19 11/30/19 25 11/29/2024 urina lysis , dipst ick Leukocytes Small Not Available [facility] ([facility]) [address] [place], [address], 11/29/2024 18:11:04 11/30/19 25 11/29/2024 urina lysis , dipst ick Nitrite positi ve Not Available [facility] ([facility]) [address] [place], [address], 11/29/2024 18:11:04 11/30/19 25 11/29/2024 urina lysis , dipst ick Urobilinogen .2 Not Available [facility] ([facility]) [address] [place], [address], 11/29/2024 18:11:04 11/30/19 25 11/29/2024 urina lysis , dipst ick Protein Negati ve Not Available [facility] ([facility]) [address] [place], [address], 11/29/2024 18:11:04 11/30/19 25 11/29/2024 urina lysis , dipst ick pH 6.0 Not Available [facility] ([facility] [address] [facility]) [address] [place], [address], 11/29/2024 18:11:04 11/30/19 25 11/29/2024 urina lysis , dipst ick Blood Non-He molyze d: Trace Not Available [facility] ([facility]) [address] [place], [address], 11/29/2024 18:11:04 11/30/19 25 11/29/2024 urina lysis , dipst ick Specific [place] 1.010 Not Available [facility] ( [facility]) [address] [place], [address], 11/29/2024 18:11:04 11/30/19 25 11/29/2024 urina lysis , dipst ick Ketone Negati ve Not Available [facility] ([facility]) [address] [place], [address], 11/29/2024 18:11:04 11/30/19 25 11/29/2024 urina lysis , dipst ick Bilirubin Negati ve Not Available [facility] ([facility]) [address] [place], [address], 11/29/2024 18:11:04 11/30/19 25 11/29/2024 urina lysis , dipst ick Glucose 100 Not Available [facility] ([facility] [address]) [address] [place], [address], 11/29/2024 18:11:04 11/30/19 25 11/29/2024 urina lysis , dipst ick Appearance Clear Not Available [facility] ([facility]) [address] [place], [address], 11/29/2024 18:11:04 11/30/19 11/29/2024 urina lysis , dipst ick Color [place] Not Available [facility] ([facility] [address] [facility]) [address] [place], [address], 11/29/2024 18:11:04 12/01/1912/03/2024 CULTU RE, URINE , ROUTI NE culture, urine, routine SEE NOTE abnormal CULTU RE, URINE , ROUTI NE Micro Numbe r: [id number] Test Statu s: Final Speci men Sourc e: Urine Speci men Quali ty: Adequ ate Resul t: Great er than 100,0 00 CFU/m L of Klebs iella pneum oniae K.pne umoni ae ----- ----- ----- - INT ML AMOX/ CLAVU LANAT E S 4 AMP/S ULBAC ESQUIVEL S 8 CEFAZ GREG NR 2 2 CEFEP PAMELA S <=0.1 2 CEFTA ZIDIM E S <=0.5 CEFTR IAXON E S <=0.2 5 CIPRO FLOXA DONALDO S <=0.0 6 GENTA MICIN S <=1 IMIPE NEM S <= 0.25 LEVOF LOXAC IN S <=0.1 2 MEROP ENEM S <=0.2 5 NITRO FURAN TOIN R 128 PIP/T AZOBA CTAM S <=4 TRIME THOPR IM/SUMMERS LFA S <=20 S = Susce ptibl e I = Inter media te R = Resis tant NS = Not susce ptibl e SDD = Susce ptibl e Dose Depen dent * = Not Teste d NR = Not Repor derrick NN = See Thera py Comme nts THERA PY COMME NTS Note 1: For infec tions other than uncom plica derrick UTI cause d by E. coli, K. pneum oniae or P. mirab ilis: Cefaz greg is resis tant if ML > or = 8 mcg/m L. (Dist ingui shing susce ptibl e versu s inter media te for isola shereen with ML < or = 4 mcg/m L requi res addit ional testi ng.) Note 2: For uncom plica derrick UTI cause d by E. coli, K. pneum oniae or P. mirab ilis: Cefaz greg is susce ptibl e if ML <32 mcg/m L and predi cts susce ptibl e to the oral agent s cefac jose, cefdi anuradha, cefpo doxim e, cefpr ozil, cefur oxime , cepha lexin and lorac arbef . Not Available [facility] [address] [place], [address], 12/03/2024 02:36:51 12/21/1912/20/2024 CBC WBC 11.3 x10 4.0-10 .5 high Not Available [facility] [address] [facility], [place], [address], 12/20/2024 12:17:57 12/21/1912/20/2024 CBC RBC 4.57 x10 3.50-5 .50 Not Available [facility] [address] [facility] 1, [place], [address], 12/20/2024 12:17:57 12/21/1912/20/2024 CBC HGB 13.0 g/dL 12.0-1 6.0 Not Available [facility] [address] [facility] 1, [place], [address], 12/20/2024 12:17:57 12/21/1912/20/2024 CBC HCT 39.5 % 37.0-4 7.0 Not Available [facility] [address] [facility] 1, [place], [address], 12/20/2024 12:17:57 12/21/1912/20/2024 CBC MCV 86.5 fL 80.0-9 9.9 Not Available [facility] [address] [facility], [place], [address], 12/20/2024 12:17:57 12/21/1912/20/2024 CBC MCH 28.5 pg 27.0-3 2.0 Not Available [facility] [address] [facility] [address], [place], [address], 12/20/2024 12:17:57 12/21/1912/20/2024 CBC MCHC 33.0 g/dL 32.0-3 6.0 Not Available [facility] [address] [facility] [address], [place], [address], 12/20/2024 12:17:57 12/21/1912/20/2024 CBC RDW 13.6 % 11.5-1 4.5 Not Available [facility] [address] [facility], [place], [address], 12/20/2024 12:17:57 12/21/1912/20/2024 CBC plt 293.1 x10 140.0- 451.0 Not Available [facility] [address] [facility] [address], [place], [address], 12/20/2024 12:17:57 12/21/1912/20/2024 CBC lymphocytes % 14.4 % 20.0-5 0.0 low Not Available [facility] [address] [facility], [place], [address], 12/20/2024 12:17:57 12/21/1912/20/2024 CBC granulcytes % 79.8 % 30.0-7 0.0 high Not Available [facility] [address] [facility] [address], [place], [address], 12/20/2024 12:17:57 12/21/1912/20/2024 CBC monocytes % 4.5 % 2.0-16 .0 Not Available [facility] [address] [facility] [address], [place], [address], 12/20/2024 12:17:57 12/21/19 25 12/20/2024 CBC granulcytes# 9.0 x10 Not Vee ilable [facility] [address] [facility] [address], [place], [address], 12/20/2024 12:17:57 12/21/19 25 12/20/2024 CBC lymphocytes # 1.6 x10 Not Available [facility] [address] [facility] [address], [place], [address], 12/20/2024 12:17:57 12/21/19 25 12/20/2024 CBC monocytes # 0.5 x10 Not Avai lable [facility] [address] [address], [place], [address], 12/20/2024 12:17:57 12/21/19 25 12/20/2024 GLUCO SE SCREE N glucose screen 109.0 mg/dL Not Available [facility] [address] [facility] [address], [place], [address], 12/20/2024 12:45:33 02/01/20 25 02/04/2025 STREP TOCOC CUS, GROUP B CULTU RE streptococcu s, group B culture SEE NOTE STREP TOCOC CUS, GROUP B CULTU RE Micro Numbe r: [id number] Test Statu s: Final Speci men Sourc e: Vagin al/an orect al Speci men Quali ty: Adequ ate Resul t: No group B Strep tococ cus isola derrick Note per CDC guide lines optim al recov asiya is achie urvashi by swabb ing both the lower vagin a and rectu m (thro ugh the anal sphin cter) . Not Available [facility] [address], [place], [address], 02/04/2025 07:46:21 09/06/19 25 08/29/2024 US, obste tric, 2nd trime ster No observ ation record ed. [email or web address] [facility] [address] [place], [address], 09/06/2024 09:26:30 10/31/19 25 10/24/2024 US, obste tric, 2nd trime ster No observ ation record ed. [email or web address] [facility] [address] [place], [address], 11/01/2024 08:14:25 Result Notes None recorded. Problems Name Problem SNOMED Code Status Onset Date Resolution Date Notes Provider Name and Address Organization Details Recorded Time 77894967 Active 2024 CONRAD max [facility] 09:18:59 Normal in multigravid a 3569643307356 06 Active 2024 CONRAD max [facility] 10:07:15 Anxiety 42535188 Active 2024 TAM POLLACK [facility] 11:21:46 Problem Notes None recorded. Procedures Surgical History Date Name Laterality Status Provider Name and Address Organization Details Recorded Time 08/29/19 25 Date of Last Pap Smear completed [facility] 10/02/2024 11:22:16 08/17/19 25 sampling of cervix for Papanicolaou smear completed [facility] 08/30/2024 18:00:15 extraction of wisdom tooth completed CONRAD DELAROSA [facility] 08/20/2024 09:07:26 Imaging Results None recorded. Procedure Notes None recorded. Medical Equipment None Reported. Allergies Allergen ID Allergen Name Allergen Category Reaction Reaction Severity Criticality Documentation Date Start Date Code Code System Note Provider Name and Address Organization Details Recorded Time 15243 iodine medicatio n Not available Not available low 08/20/2024 5933 RxNorm fathe r is aller gic, pt prefe rs to not have [facility] 09:06:27 Medications Name Sig Start Date Stop Date Status Note LastModified by Organization Details LastModified Time ciprofloxaci n 500 mg tablet TAKE 1 TABLET BY MOUTH TWICE A DAY FOR 7 DAYS 08/20 completed Not Available Not Available Not Available cephalexin 500 mg capsule Take 1 capsule every 6 hours by oral route for 5 days. 12/11 completed Not Available Not Available Not Available cefdinir 300 mg capsule TAKE 1 CAPSULE BY MOUTH EVERY 12 HOURS FOR 7 DAYS 09/17 completed Not Available Not Available Not Available amoxicillin 875 mg-potassium clavulanate 125 mg tablet Take 1 tablet every 12 hours by oral route for 5 days. 09/29 completed Not Available Not Available Not Available Vitamin 27 mg iron-0.8 mg tablet Take 1 tablet every day by oral route. active Not Available Not Available No t Available nitrofuranto in monohydrate/ macrocrystal s 100 mg capsule TAKE 1 CAPSULE BY MOUTH EVERY 12 HOURS FOR 7 DAYS 08/20 completed Not Available Not Available Not Available Vitamin D active Not Available Not Vee ilable Not Available Glucosamine active Not Available Not A vailable Not Available [place] 3 08/20 completed Not Available Not Available Not Available Vitamin B6 2 qd active Not Available Not Av ailable Not Available flaxseed-ome ga3,6,9-fatt y acid 3 qd active Not Available Not Available Not Available Culturelle Probiotic-Pr ebiotic active Not Available Not Available Not Available marshmallow root active Not Available Not Available Not Available Vitals Date Recorded Body height Body mass index (BMI) Body weight Oxygen saturation Oxygen saturation in Arterial blood by Pulse oximetry Heart rate Respiratory rate Body temperature Systolic And Diastolic Provider Name and Address Organization Details Last Updated DateTime 5 177.8 cm 37.7 kg/m2 090836 g 96 % 96 % 95 /min 18 /min 98.4 [degF] 128/76 mm[Hg] ATM POLLACK [facility] 10:07:30 Social History Question Answer Notes LastModified by Organizat ion Details LastModified Time Tobacco Smoking Status Never Smoker Abby [place] max [facility] 04/01/2024 14:14:02 If You Are , What Was Your Level Of Alcohol Consumption Prior To ? None Information not available 08/20/2024 Are You Blind Or Do You Have Difficulty Seeing? No Information not available 08/20/2024 Are You Deaf Or Do You Have Serious Difficulty Hearing? No Information not available 08/20/2024 What Was The Date Of Your Most Recent Tobacco Screening? 09/17/2024 [email or web address] Information not available 09/17/2024 What Is Your Relationship Status? Information not available 08/20/2024 Are You Sexually Active? Yes Information not available 08/20/2024 Do You Have Difficulty Walking Or Climbing Stairs? No Information not available 08/20/2024 Sex: Unknown Functional Status Question Answer Note LastModified by Organizat ion Details LastModified Time Do you use any illicit or recreational drugs? No Information not available 08/20/2024 Do you or have you ever used any other forms of tobacco or nicotine? No Information not available 08/20/2024 What is your level of alcohol consumption? Occasional Information not available 08/20/2024 Are you currently employed? Yes Information not available 08/20/2024 Do you have transportation difficulties? No Information not available 08/20/2024 Are you able to walk independently without assistance or assistive devices? YESWOREST Information not available 08/20/2024 Do you have difficulty doing errands alone? No Information not available 08/20/2024 Are you able to care for yourself independently? 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 No Information not available 08/20/2024 Do you or have you ever used any nicotine-free cigarettes, vape, or chewing tobacco? No Information not available 08/20/2024 Mental Status Question Answer Note LastModified by Organization D etails LastModified Time Do you have difficulty concentrating, remembering or making decisions? No Information no t available 08/20/2024 Family History Relationship Description Onset Age of this Age Resolved Age Notes LastModified by Organization Details LastModified Time Mother Tachycardia Not availab le 08/20/2024 09:08:48 Father Crohn's disease Not available 2024 09:09:21 Maternal Grandmother Crohn's disease Not available 2024 09:09:21 Maternal Aunt Crohn's disease Not available 2024 09:09:21 Medical History Condition Response Coronary Artery Disease N Other N Gout N Kidney Stones N Blood Diseases N Hyperthyroidism N Breast Cancer N Blood Transfusion N Depression N Hypothyroidism N Lung Disease N COPD N Developmental or Behavioral Disorders N Defects or Inherited Disease N Breast Problem N Difficulty Swallowing N Anesthesia Complications N Anxiety Disorder N Meniere's disease N Muscle, Joint, or Bone Problems N Vision or Eye Problems N Arthritis N Infertility N Polyps N Cancer N Stroke N Varicosities N Endometriosis N Bladder or Kidney Problems N High Cholesterol N Liver Disease N Fibromyalgia N Headaches N Kidney Disease N Allergies/Hayfever N Heart Problems N Ear or Hearing Problems N Hospitalizations N Thyroid Problems N GI Problems N ADD/ADHD N Skin Problems N Eating Disorder N Anemia N Constipation N Mental Illness N Ovarian Cancer N Diabetes N Bedwetting N Seizures/Epilepsy N Tuberculosis N Eczema N Diverticulitis N Abuse/Domestic Violence N Asthma N Reflux/GERD N Hepatitis N Heart Disease N Pulmonary Embolism N Pre-Eclampsia N Hypertension N Chronic Ear Infections N Osteoporosis N Chicken Pox N Autism Spectrum Disorder (ASD) N Thrombophilias N Gynecological History Statement/Question Response Abnormal Pap N Date of Last Pap Smear 08/28/2024 Date of LMP 06/04/2024 LMP Approximate Obstetrics History GPAL:G 1 P 0 0 0 0 Past Encounters Encounter ID Performer Location Encounter Start Date Encounter Closed Date Diagnosis/Indication Diagnosis SNOMED-CT Code Diagnosis ICD10 Code Diagnosis IMO Codes Diagnosis Note [id number] Delia Allred MD [facility] ([facility]) [address] [phone] 01/17/2025 08:48:32 01/17/2025 10:30:43 Primigravida 554349787 Z34.03 45096269 - Reviewed permanent nature and potential complicati ons of tubal ligation; patient advised on decision timeline and options including non-hormon al IUD. Gestation period, 34 weeks 06652866 Z3A.34 1816751 - Reinforced standard care; acknowledg ed back pain as typical for , advised monitoring and posture awareness. [id number] Delia Allred MD [facility] ([facility]) [address] [place] [phone] 01/31/2025 09:38:37 01/31/2025 10:27:42 76280303 Z33.1 Gestation period, 36 weeks 37518735 Z3A.36 1198172 [id number] Delia Allred MD [facility] ([facility]) [address] [place] [phone] 5 02/06/2025 09:42:45 02/06/2025 11:32:19 Third trimester 09021825 Z34.93 090008 Gestation period, 36 weeks 19670890 Z3A.36 1241405 [id number] Delia Allred MD [facility] ([facility]) [address] [place] [phone] 02/13/2025 09:44:07 02/13/2025 10:40:38 11386200 Z33.1 Gestation period, 37 weeks 83682287 Z3A.37 8618929 Health Concerns Section Related Observation LastModified by Organization Detai ls LastModified Time None Recorded Concern Status LastModified by Organization Details LastModified Time None Recorded Payers Encounter Date Sequence Insurance Name Policy Number Policy Franklin Covered Member ID Franklin Member ID Guarantor Name 02/13/[address] [employer] [id number] Sagrario Orta [id number] Sagrario Orta Notes Date Note Type Note Provider Name and Address Organization Details Recorded Time 02/13/2025 text/html jr ob routineRep orted by PatientHPIFor associated symptoms, patient reportsabdominal pain,cramping,abnormal movement (decreased),vaginal discharge (heavy),nausea,constip ation,diarrhea/loose stool,edema (feet/legs/hands),dizz iness, andbreathlessnessbut reportsno contractions,no bleeding,no vaginal/vulvar itching or irritation,no dysuria,no frequency,no urgency,no hematuria,no fever,no emesis,no visual changes, andno headache.fatigue, breast tenderness, heartburn and acid reflux, vaginal pressure, pelvic pain,back painDenies any tobacco, alcohol, or drug useROS as noted in the HPI Delia Allred MD [address] [place], [phone], [facility] [employer] 02/13/2025 10:39:30 OBGyn Episode Ob Episode Information Episode Created Date Number of Fetuses Patient Bloodtype Patient rh Status Prepregnancy Weight lbs Domestic Partner Domestic Partner Phone Father Name Electrician Office Status 08/21/19 25 1 O Positive Axel Orta OPEN Fetus Data First Name Last Name Admitted to NICU Weight (g) Sex Living Outcome Pediatric Complications Fetus ID Race Codes Race Delivery Type [id number] Problems Problem Notes quad screen desired.Discuss breathing tbhebecc54/16/25- order for epidural consult sent to [facility] Problem Name Start Date End Date Resolution Snomed Code Not e Normal in multigravida 08/28/2024 [id number] Sadia Calculation Initial Sadia Date Initial Exam Date Initial Exam Provider Initial Ultrasound Date Last Menstrual Period Date Ultra Sound Weeks Gestation 08/20/2024 08/29/2024 13 Eighteen To Twenty Week Sadia Update Ultra Sound Date Fundal Height At Umbil Quickening Date Ultra Sound Latest Weeks Gestation Final Sadia Confirmed By Final Sadia Confirmed Date Final Sadia Date Ultra Sound Latest Days Gestation 0 08/29/2024 02/29/20 25 0 Pre-raffi Flowsheet Flowsheet Date 08/20/2024 Blackmon Score Blood Edema Fundus Height Fundus Units Glucose Ketones Leukocytes Nitrite Labor Signs Protein Cervic Dilation Cervic Effacement Cervic Station Type Weight in lbs Pre/Post Dialysis Refused Weight 223.704635801215 BP Diastolic BP Location Tested BP Systolic BP Type 62 126 Fetus Heart Rate Present Fetus Movement Comments Flowsheet Date 08/28/2024 Blackmon Score Blood Edema Fundus Height Fundus Units Glucose Ketones Leukocytes Nitrite Labor Signs Protein Cervic Dilation Cervic Effacement Cervic Station Type Weight in lbs Pre/Post Dialysis Refused Weight 227.0781929883 BP Diastolic BP Location Tested BP Systolic BP Type 66 L arm 120 Fetus Heart Rate Present Fetus Movement Comments Flowsheet Date 08/29/2024 Blackmon Score Blood Edema Fundus Height Fundus Units Glucose Ketones Leukocytes Nitrite Labor Signs Protein Cervic Dilation Cervic Effacement Cervic Station Type Weight in lbs Pre/Post Dialysis Refused BP Diastolic BP Location Tested BP Systolic BP Type Fetus Heart Rate Present Fetus Movement Comments Flowsheet Date 08/29/2024 Blackmon Score Blood Edema Fundus Height Fundus Units Glucose Ketones Leukocytes Nitrite Labor Signs Protein Cervic Dilation Cervic Effacement Cervic Station Type Weight in lbs Pre/Post Dialysis Refused BP Diastolic BP Location Tested BP Systolic BP Type Fetus Heart Rate Present Fetus Movement Comments u/s on 08/29/24, SADIA 02/28/25 , EGA 13.6. FHR 157 Flowsheet Date 08/31/2024 Blackmon Score Blood Edema Fundus Height Fundus Units Glucose Ketones Leukocytes Nitrite Labor Signs Protein Cervic Dilation Cervic Effacement Cervic Station Type Weight in lbs Pre/Post Dialysis Refused Weight 225.793381911175 BP Diastolic BP Location Tested BP Systolic BP Type 60 122 Fetus Heart Rate Present Fetus Movement Comments Flowsheet Date 09/05/2024 Blackmon Score Blood Edema Fundus Height Fundus Units Glucose Ketones Leukocytes Nitrite Labor Signs Protein Cervic Dilation Cervic Effacement Cervic Station Type Weight in lbs Pre/Post Dialysis Refused Weight 226.394525962671 BP Diastolic BP Location Tested BP Systolic BP Type 64 R arm 120 sitting Fetus Heart Rate Present Fetus Movement Comments Flowsheet Date 09/17/2024 Blackmon Score Blood Edema Fundus Height Fundus Units Glucose Ketones Leukocytes Nitrite Labor Signs Protein Cervic Dilation Cervic Effacement Cervic Station Type Weight in lbs Pre/Post Dialysis Refused Weight 223.768105455630 BP Diastolic BP Location Tested BP Systolic BP Type 70 120 Fetus Heart Rate Present Fetus Movement Comments Flowsheet Date 10/02/2024 Blackmon Score Blood Edema Fundus Height Fundus Units Glucose Ketones Leukocytes Nitrite Labor Signs Protein Cervic Dilation Cervic Effacement Cervic Station none none Negative trace Type Weight in lbs Pre/Post Dialysis Refused Weight 229.5931153320 BP Diastolic BP Location Tested BP Systolic BP Type 68 122 sitting Fetus Heart Rate Present A 146 Present Fetus Movement Comments mild abdominal pain/cramping , nausea/vomiting, diarrhea/cnstipation, headache, dizziness, sob, fatigue, breast tenderness Flowsheet Date 10/24/2024 Blackmon Score Blood Edema Fundus Height Fundus Units Glucose Ketones Leukocytes Nitrite Labor Signs Protein Cervic Dilation Cervic Effacement Cervic Station Type Weight in lbs Pre/Post Dialysis Refused BP Diastolic BP Location Tested BP Systolic BP Type Fetus Heart Rate Present Fetus Movement Comments Flowsheet Date 11/01/2024 Blackmon Score Blood Edema Fundus Height Fundus Units Glucose Ketones Leukocytes Nitrite Labor Signs Protein Cervic Dilation Cervic Effacement Cervic Station 23 cm none none Negative neg Type Weight in lbs Pre/Post Dialysis Refused Weight 241.507250125101 BP Diastolic BP Location Tested BP Systolic BP Type 72 122 sitting Fetus Heart Rate Present A 150 Present Fetus Movement A Yes Comments abd pain/cramping, dysuria, N/V, constipation/diarrhea, dizziness, sob, decreased appitite, breast tenderness, vaginal pain when sitting and standing up Flowsheet Date 11/23/2024 Blackmon Score Blood Edema Fundus Height Fundus Units Glucose Ketones Leukocytes Nitrite Labor Signs Protein Cervic Dilation Cervic Effacement Cervic Station 27 cm none none Negative neg Type Weight in lbs Pre/Post Dialysis Refused Weight 240.928448757508 BP Diastolic BP Location Tested BP Systolic BP Type 64 120 sitting Fetus Heart Rate Present A 154 Present Fetus Movement A Yes Comments abdominal pain/cramping, spo tting after intercourse, fatigue, breast tenderness,nausea, vomitting, constipation, diarrhea, dizziness, sob, rash on thighs. Flowsheet Date 11/29/2024 Blackmon Score Blood Edema Fundus Height Fundus Units Glucose Ketones Leukocytes Nitrite Labor Signs Protein Cervic Dilation Cervic Effacement Cervic Station Type Weight in lbs Pre/Post Dialysis Refused Weight 249.322729369612 BP Diastolic BP Location Tested BP Systolic BP Type 70 R arm 124 sitting Fetus Heart Rate Present Fetus Movement Comments Flowsheet Date 12/20/2024 Blackmon Score Blood Edema Fundus Height Fundus Units Glucose Ketones Leukocytes Nitrite Labor Signs Protein Cervic Dilation Cervic Effacement Cervic Station 31 cm none trace Type Weight in lbs Pre/Post Dialysis Refused Weight 243.375848184849 BP Diastolic BP Location Tested BP Systolic BP Type 68 110 Fetus Heart Rate Present A 164 Present Fetus Movement A Decreased Comments cramping, pelvic pain, vagin al pressure, nausea, heartburn/acid reflux, hip/back pain, spotting intermittent, constipation,dizziness Flowsheet Date 01/02/2025 Blackmon Score Blood Edema Fundus Height Fundus Units Glucose Ketones Leukocytes Nitrite Labor Signs Protein Cervic Dilation Cervic Effacement Cervic Station 32 cm none trace Type Weight in lbs Pre/Post Dialysis Refused Weight 247.881756580929 BP Diastolic BP Location Tested BP Systolic BP Type 70 116 Fetus Heart Rate Present A 148 Present Fetus Movement A Yes Comments abd pain, cramps, pelvic anupam n, vaginal pressure, swelling legs, N/V, heartburn/acid reflux, constipation, intermit spotting Flowsheet Date 01/17/2025 Blackmon Score Blood Edema Fundus Height Fundus Units Glucose Ketones Leukocytes Nitrite Labor Signs Protein Cervic Dilation Cervic Effacement Cervic Station 34 cm none none Negative neg Type Weight in lbs Pre/Post Dialysis Refused Weight 255.509547861370 BP Diastolic BP Location Tested BP Systolic BP Type 68 122 sitting Fetus Heart Rate Present A 140 Present Fetus Movement A Yes Comments abdominal pain/cramping, pankaj sea,constipation,edema feet/legs, dizziness,heartburn, vaginal pressure rib pain, breast tenderness,heartburn Flowsheet Date 01/31/2025 Blackmon Score Blood Edema Fundus Height Fundus Units Glucose Ketones Leukocytes Nitrite Labor Signs Protein Cervic Dilation Cervic Effacement Cervic Station 36 cm none none trace 0cm 30% -4 Type Weight in lbs Pre/Post Dialysis Refused Weight 257.445628564785 BP Diastolic BP Location Tested BP Systolic BP Type 74 120 Fetus Heart Rate Present A 148 Present Fetus Movement A Yes Comments group b strep swab collected todaycramps, pelvic pain, vaginal pressure, Nausea, swelling Flowsheet Date 02/06/2025 Blackmon Score Blood Edema Fundus Height Fundus Units Glucose Ketones Leukocytes Nitrite Labor Signs Protein Cervic Dilation Cervic Effacement Cervic Station 37 cm none 1+ Negative trace 0cm 30% -4 Type Weight in lbs Pre/Post Dialysis Refused Weight 264.095164300389 BP Diastolic BP Location Tested BP Systolic BP Type 72 124 sitting Fetus Heart Rate Present A 156 Fetus Movement A Decreased Comments abdominal pain/cramping, vag inal pressure, pelvic pain, back pain,edema feet/hands/legs, heartburn, breast tenderness, dizziness Flowsheet Date 02/06/2025 Blackmon Score Blood Edema Fundus Height Fundus Units Glucose Ketones Leukocytes Nitrite Labor Signs Protein Cervic Dilation Cervic Effacement Cervic Station Type Weight in lbs Pre/Post Dialysis Refused BP Diastolic BP Location Tested BP Systolic BP Type Fetus Heart Rate Present Fetus Movement Comments Group B strep NegativeOB rec ords sent Flowsheet Date 02/13/2025 Blackmon Score Blood Edema Fundus Height Fundus Units Glucose Ketones Leukocytes Nitrite Labor Signs Protein Cervic Dilation Cervic Effacement Cervic Station 38 cm none trace Negative 1+ 1cm 70% -4 Type Weight in lbs Pre/Post Dialysis Refused Weight [id number] BP Diastolic BP Location Tested BP Systolic BP Type 76 128 sitting Fetus Heart Rate Present A 148 Present Fetus Movement A Yes Comments abdominal pain/cramping, vag inal pressure/in creased discharge, back pain, nausea, constipation/diarrhea, fatigue, breast tendermess, heartburn, pelvic pain Menstrual History Last Menstrual Date Menses Monthly On Bcp Conception Prior Menses Frequency Hcg Plus Date Menarche Onset Age Genetic Screening And Infection History Question Response Note Patient's Age Will Be 35 Years Or Older At Estim ated Date of Delivery false Thalassemia (Swazi, Ugandan, Mediterranean, Or Background): MCV < 80 false Neural Tube Defect (Meningomyelocele, Spina Bifi da, Or Anencephaly) false Congenital Heart Defect false Down Syndrome false Twan-Sachs (eg, Yarsani, [place], [place]) f alse Frances Disease false Sickle Cell Disease Or Trait () false Hemophilia Or Other Blood Disorders false Muscular Dystrophy false Cystic Fibrosis false Chester's Chorea false Intellectual Disability/Autism false If Yes, Was Person Tested For Fragile X? false Other Inherited Genetic Or Chromosomal Disorder false Maternal Metabolic Disorder (eg, Type 1 Diabetes , PKU) false Patient Or Baby's Father Had A Child With Defects Not Listed Above false Recurrent Loss, Or A Stillbirth false Medications (including Suppl ements, Vitamins, Herbs, OTC Drugs), Illicit/Recreational Drugs, Alcohol true If Yes, Agent(s) And Strength/Dosage false Any Other Genetic History false Live With Someone With TB Or Exposed To TB false Patient Or Partner Has History Of Genital Herpes false Rash Or Viral Illness Since Last Menstrual Perio d false History Of STD, Gonorrhea, Chlamydia, HPV, Syphi lis false Other Infection History false History of HIV false History of Hepatitis false Prior GBS-infected child false Hemoglobinopathy Or Carrier false Other Structural Defect false Recent Travel History Outside of Country false Mental Retardation/Autism false Delivery Information Delivery Date Delivery Type Labor Anesthesia Weeks Gestation Incision Type Labor Labor Length Hrs Delivered By Post Complications Tubal Sterilization Discharge Date Comments Discharge Information Feeding Method Contraceptive Method Maternal HG B and HCT Levels
--- OUTSIDE RECORDS SUMMARY | 2025-02-19 21:31 | XMS_ITS | Data Portability ---
Author Organization [place] - Sergey Najera [facility] Address [address] [address] Care Team Providers Care Rehabilitation Counsellor Name Role Phone DELIA ALLRED Primary Care Provider Unavaila ble Assessment Encounter Date Assessment Date Assessment LastModified by Organization Details LastModified Time 01/17/2025 01/17/2025 - 24-year-old female with a history of being primigravida presenting with a discussion about tubal ligation and alternative contraceptive methods. - At 34 weeks of gestation and discussing potential permanent contraceptive options post-delivery. We discussed the risks and alternatives to a tubal ligation. We discussed the risks of bleeding, infection and damage to intraabdominal organs. We also discussed the increased risk of ectopic and a chance to become again despite a successful tubal ligation. - Reported back rib pain likely related to , requiring monitoring. [email or web address] Not available 01/17/2025 10:23:27 Plan of Treatment Reminders Order Date Submit Date Provider Last Modified By Organization Details Last Modified Time Details Appointments POST-PART UM VISIT 2024 11:00A M Delia Allred MD Not available Not available Not available Lab streptoco ccus group B, culture, unspecifi ed specimen 2024 025 [employer] [facility], [address] [place] [address], [address] [place], [address], 02/04/2025 07:46:21 Referral anesthesi ologist referral - SADIA is 11/13/25 10/16/ 2025 10/16/2 025 asurface [facility], [address] [place], [address], 02/13/2025 14:47:47 Procedures None recorded. Surgeries None recorded. Imaging None recorded. Medication Orders None recorded. Patient TargetsNo targets recorded. Patient Instructions Encounter Date Encounter Id Patient Instructions Last Modified By Organization Details Last Modified Time 01/17/2025 [id number] - Consider all control options thoroughly, including non-hormonal IUDs. - Monitor back rib pain; report any new or worsening symptoms. - Plan to decide regarding tubal ligation within 24 hours of delivery if proceeding with the procedure immediately after childbirth is desired. - Maintain regular care appointments for ongoing monitoring of progress. [email or web address] Not available 01/17/2025 09:53:20 I engaged the patient in a discussion about the permanence of tubal ligation and alternative contraceptive methods. We covered the risks and success rates associated with tubal ligation, vasectomy, IUDs, and other hormonal and non-hormonal options. We extensively reviewed the benefits and reversibility of non-hormonal IUDs compared to permanent solutions. I stressed that a decision regarding tubal ligation could be postponed and revisited . The patient was informed about the typical nature of back rib pain during due to physiological changes and assured that this was not alarming unless accompanied by other distressing symptoms. I provided reassurance regarding the effectiveness of choosing a reliable contraceptive method and encouraged the patient to carefully consider her options. [email or web address] Not available 01/17/2025 09:53:20 Reason for Referral Anesthesiologist Referral fo r Gestation period, 36 weeks SADIA is 02/28/25 Referring Physician: Delia Allred, Family Medicine, Encounter Date: 01/31/2025 Results Created Date Observation Date Name Description Value Unit Range Abnormal Flag Note LastModifiedBy Organization Detail LastModifiedTime 12/21/1912/20/2024 CBC WBC 11.3 x10 4.0-10 .5 high Not Available [facility] [address], [place], [address], 12/20/2024 12:17:57 12/21/1912/20/2024 CBC RBC 4.57 x10 3.50-5 .50 Not Available [facility] [address] [facility], [place], [address], 12/20/2024 12:17:57 12/21/1912/20/2024 CBC HGB 13.0 g/dL 12.0-1 6.0 Not Available [facility] [address] [facility], [place], [address], 12/20/2024 12:17:57 12/21/1912/20/2024 CBC HCT 39.5 % 37.0-4 7.0 Not Available [facility] [address] [facility], [place], [address], 12/20/2024 12:17:57 12/21/1912/20/2024 CBC MCV 86.5 fL 80.0-9 9.9 Not Available [facility] [address] [facility], [place], [address], 12/20/2024 12:17:57 12/21/1912/20/2024 CBC MCH 28.5 pg 27.0-3 2.0 Not Available [facility] [address] [facility], [place], [address], 12/20/2024 12:17:57 12/21/1912/20/2024 CBC MCHC 33.0 g/dL 32.0-3 6.0 Not Available [facility] [address] [facility], [place], [address], 12/20/2024 12:17:57 12/21/1912/20/2024 CBC RDW 13.6 % 11.5-1 4.5 Not Available [facility] [address] [facility], [place], [address], 12/20/2024 12:17:57 12/21/1912/20/2024 CBC plt 293.1 x10 140.0- 451.0 Not Available [facility] [address] [facility], [place], [address], 12/20/2024 12:17:57 12/21/1912/20/2024 CBC lymphocytes % 14.4 % 20.0-5 0.0 low Not Available [facility] [address] [facility], [place], [address], 12/20/2024 12:17:57 12/21/1912/20/2024 CBC granulcytes % 79.8 % 30.0-7 0.0 high Not Available [facility] [address] [facility], [place], [address], 12/20/2024 12:17:57 12/21/1912/20/2024 CBC monocytes % 4.5 % 2.0-16 .0 Not Available [facility] [address] [address], [place], [address], 12/20/2024 12:17:57 12/21/1912/20/2024 CBC granulcytes# 9.0 x10 Not Vee ilable [facility] [address] [facility], [place], [address], 12/20/2024 12:17:57 12/21/1912/20/2024 CBC lymphocytes # 1.6 x10 Not Available [facility] [address] [address], [place], [address], 12/20/2024 12:17:57 12/21/1912/20/2024 CBC monocytes # 0.5 x10 Not Avai lable [facility] [address] [facility], [place], [address], 12/20/2024 12:17:57 12/21/19 25 12/20/2024 GLUCO SE ALESSANDRO N glucose screen 109.0 mg/dL Not Available [facility] [address] [facility], [place], [address], 12/20/2024 12:45:33 02/01/20 25 02/04/2025 STREP TOCOC CUS, GROUP B CULTU RE streptococcu s, group B culture SEE NOTE STREP TOCOC CUS, GROUP B CULTU RE Micro Numbe r: [id number] Test Statu s: Final Speci men Sourc e: Vagin al/an orect al Speci men Quali ty: Adequ ate Resul t: No group B Strep tococ cus isola derrick Note per CDC guide lines optim al recov asiya is achie urvashi by swabb ing both the lower vagin a and rectu m (thro ugh the anal sphin cter) . Not Available [address] [address] [place], [address], 02/04/2025 07:46:21 Result Notes None recorded. Problems Name Problem SNOMED Code Status Onset Date Resolution Date Notes Provider Name and Address Organization Details Recorded Time 81909766 Active 2024 [facility] 09:[facility]59 Normal in multigravid a 4810561349275 06 Active 2024 [facility] 10:07:15 Anxiety 42274403 Active 2024 TAM Hawkins [facility] 11:21:46 Problem Notes None recorded. Procedures Surgical History Date Name Laterality Status Provider Name and Address Organization Details Recorded Time 08/29/19 Date of Last Pap Smear [facility] 10/02/2024 11:22:16 05/01/20 25 sampling of cervix for Papanicolaou smear completed [facility] 08/30/2024 18:00:15 extraction of wisdom tooth completed CONRAD DELAROSA [facility] 08/20/2024 09:07:26 Imaging Results None recorded. Procedure Notes None recorded. Medical Equipment None Reported. Allergies Allergen ID Allergen Name Allergen Category Reaction Reaction Severity Criticality Documentation Date Start Date Code Code System Note Provider Name and Address Organization Details Recorded Time 69416 iodine medicatio n Not available Not available low 08/20/2024 5933 RxNorm fathe r is aller gic, pt prefe rs to not have [facility]RAD [facility] 09:06:27 Medications Name Sig Start Date Stop [...] Not Available Not A vailable Not Available Ellis 3 08/20 completed Not Available Not Available Not Available Vitamin B6 2 qd active Not Available Not Av ailable Not Available flaxseed-ome ga3,6,9-fatt y acid 3 qd active Not Available Not Available Not Available Culturelle Probiotic-Pr ebiotic active Not Available Not Available Not Available [facility] root active Not Available Not Available Not Available Vitals Date Recorded Body height Body mass index (BMI) Body weight Oxygen saturation Oxygen saturation in Arterial blood by Pulse oximetry Heart rate Respiratory rate Body temperature Systolic And Diastolic Provider Name and Address Organization Details Last Updated DateTime 5 177.8 cm 35.5 kg/m2 095549. 12 g 97 % 97 % 100 /min 18 /min 98.2 [degF] 116/70 mm[Hg] [facility] 5 09:29:23 Date Recorded Body height Body mass index (BMI) Body weight Oxygen saturation Oxygen saturation in Arterial blood by Pulse oximetry Heart rate Respiratory rate Body temperature Systolic And Diastolic Provider Name and Address Organization Details Last Updated DateTime 5 177.8 cm 36.6 kg/m2 938117. 15 g 98 % 98 % 89 /min 18 /min 98 [degF] 122/68 mm[Hg] TAM HALL [facility] 5 09:08:18 Date Recorded Body height Body mass index (BMI) Body weight Oxygen saturation Oxygen saturation in Arterial blood by Pulse oximetry Heart rate Respiratory rate Body temperature Systolic And Diastolic Provider Name and Address Organization Details Last Updated DateTime 5 177.8 cm 36.9 kg/m2 747588. 94 g 97 % 97 % 86 /min 20 /min 98.3 [degF] 120/74 mm[Hg] [facility] 5 09:57:24 Date Recorded Body height Body mass index (BMI) Body weight Oxygen saturation Oxygen saturation in Arterial blood by Pulse oximetry Heart rate Respiratory rate Body temperature Systolic And Diastolic Provider Name and Address Organization Details Last Updated DateTime 5 177.8 cm 37.9 kg/m2 352008. 39 g 99 % 99 % 79 /min 18 /min 98.3 [degF] 124/72 mm[Hg] TAM VILLALTANYTemo [facility] 10:31:15 Date Recorded Body height Body mass index (BMI) Body weight Oxygen saturation Oxygen saturation in Arterial blood by Pulse oximetry Heart rate Respiratory rate Body temperature Systolic And Diastolic Provider Name and Address Organization Details Last Updated DateTime 177.8 cm 37.7 kg/m2 665782 g 96 % 96 % 95 /min 18 /min 98.4 [degF] 128/76 mm[Hg] TAM POLLACK [facility] 10:07:30 Social History Question Answer Notes LastModified by Hotalot Details LastModified Time Tobacco Smoking Status Never Smoker Abby max [facility] 04/01/2024 14:14:02 If You Are , What [...] Functional Status Question Answer Note LastModified by Hotalot Details LastModified Time Do you use any [...] you have difficulty doing errands alone? No [facility] Information not available 08/20/2024 Are you able to care for yourself independently? 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 No [facility] Information not available 08/20/2024 Do you or have you ever used any nicotine-free cigarettes, vape, or chewing tobacco? No [facility] Information not available 08/20/2024 Mental Status Question Answer Note LastModified by Organization D etails LastModified Time Do you have difficulty concentrating, remembering or making decisions? No [place] [address] Information no t available 08/20/2024 Family History Relationship Description Onset Age of this Age Resolved Age Notes LastModified by Organization Details LastModified Time Mother Tachycardia Not availab le 08/20/2024 09:08:48 Father Crohn's disease Not available 2024 09:09:21 Maternal Grandmother Crohn's disease Not available 2024 09:09:21 Maternal Aunt Crohn's disease Not available 2024 09:09:21 Medical History Condition Response Coronary Artery Disease N Gout N Other N Blood Diseases N Kidney Stones N Hyperthyroidism N Blood Transfusion N Breast Cancer N Hypothyroidism N Depression N COPD N Lung Disease N Defects or Inherited Disease N Developmental or Behavioral Disorders N Breast Problem N Difficulty Swallowing N Anesthesia Complications N Anxiety Disorder N Meniere's disease N Muscle, Joint, or Bone Problems N Vision or Eye Problems N Arthritis N Polyps N Infertility N Cancer N Varicosities N Stroke N Endometriosis N Bladder or Kidney Problems N High Cholesterol N Liver Disease N Headaches N Fibromyalgia N Kidney Disease N Allergies/Hayfever N Heart [...] N Heart Disease N Pulmonary Embolism N Chronic Ear Infections N Pre-Eclampsia N Hypertension N Chicken Pox N Autism Spectrum Disorder (ASD) N Osteoporosis N Thrombophilias N Gynecological History Statement/Question Response Abnormal Pap N Date of Last Pap Smear 08/28/2024 Date of LMP 06/04/2024 LMP Approximate Obstetrics History GPAL:G 1 P 0 0 0 0 Past Encounters Encounter ID Performer Location Encounter Start Date Encounter Closed Date Diagnosis/Indication Diagnosis SNOMED-CT Code Diagnosis ICD10 Code Diagnosis IMO Codes Diagnosis Note [id number] MARKY HARRISON [facility] ([facility]) [address] [place] [phone] 04/01/2024 14:06:18 04/01/2024 14:40:16 Dysuria 63180397 R30.0 Acute urin simi tract infection 505160689 N39.0 UA results reviewed and discussed with pt. We will start antibiotic s. Pt will increase oral fluids and can use cranberry. Return to office with no improvemen t or any problems. Go to ER with severe worsening or severe problems.W e will obtain urine culture [id number] Delia Allred MD [facility] ([facility]) [address] [place] [phone] 5 08/20/2024 08:56:01 08/20/2024 10:27:59 Normal 63550219 Z34.01 5907417 Finding of menstrual bleeding 310569901 Z36.87 563046 [id number] Delia Allred MD [facility] ([facility]) [address] [place] [id number] 5 08/28/2024 09:42:47 08/28/2024 11:20:52 Normal in multigravida 3058485223 08576 Z34.80 [id number] [facility] 775883999 R06.02 10487 Anxiety 65148154 F41.9 18454 [id number] Delia Allred MD [facility] ([facility]) [address] [place] [address] 5 08/29/2024 11:58:34 08/30/2024 12:03:48 [id number] MARKY QUILES [facility] ([facility]) [address] [place] [phone] 5 08/31/2024 10:12:26 08/31/2024 11:12:39 Sore throat 863866741 J02.9 19762 Acute pansinusitis 24379 02 J01.40 54513429 May use otc meds like zyrtec and fluticason e nasal spray as needed for symptoms. Return to clinic with any new or worsening symptoms. [id number] MARKY QUILES [facility] ([facility]) [address] [place] [id number] 5 09/05/2024 12:49:47 09/05/2024 13:17:32 Acute maxillary sinusitis 45452752 J01.00 67930356 Continue zyrtec, saline nasal spray and fluticason e nasal spray. May use tylenol for sinus pain and fever. RTC with any new or worsening symptoms. [id number] MARKY HARRISON [facility] ([facility]) [address] [place] [address]84[address]588 5 09/17/2024 12:15:10 09/17/2024 14:23:37 Dysuria 13620625 R30.0 34267 Acute urin simi tract infection 614841737 N39.0 772930 UA results reviewed and discussed with pt. We will start antibiotic s. Pt will increase oral fluids and can use cranberry. Return to office with no improvemen t or any problems. Go to ER with severe worsening or severe problems.W e will obtain urine culture [id number] Delia Allred MD [facility] ([facility]) [address] [place] [id number] 5 10/02/2024 10:41:15 10/02/2024 13:04:15 Normal 77754874 Z34.02 7090215 Gestation period, 18 weeks 49892696 Z3A.18 9143610 [id number] Delia Allred MD [facility] ([facility]) [address] [place] [phone] 5 10/24/2024 10:19:23 10/25/2024 14:09:58 [id number] Delia Allred MD [facility] ([facility]) [address] [place] [address] [id number] 5 11/01/2024 09:32:45 11/01/2024 11:17:35 13894610 Z33.1 Gestation period, 23 weeks 94037790 Z3A.23 8978293 [id number] Delia Allred MD [facility] ([facility]) [address] [place] [address] [phone] 5 11/23/2024 10:22:04 11/23/2024 11:12:53 Second trimester 49167538 Z34.92 508704 Gestation period, 26 weeks 52755116 Z3A.26 [id number] MARKY QUILES [facility] ([facility]) [address] [place] [id number] 5 11/29/2024 18:10:07 11/30/2024 10:08:05 Dysuria 29379818 R30.0 33615 Acute urin simi tract infection 909584971 N39.0 870307 Discussed to take antibiotic as prescribed until completedU rine culture ordered - will notify of any resultsEdu cated patient on increasing PO fluids of water, decreasing caffeine (coffee) and sugary drinks. Discussed if developmen t of abdominal pain, flank pain, fever, vomiting, worsening symptoms return to walk-in, PCP or ED for re-evaluat ion. Return to clinic if any changes, any worsening, any concernsPa tient verbalized understand ing of plan. [id number] Delia Allred MD [facility] ([facility]) [address] [place] [id number] 5 12/20/2024 10:36:31 12/20/2024 11:33:06 61006736 Z33.1 Gestation period, 30 weeks 48442074 Z3A.30 2569543 [id number] Delia Allred MD [facility] ([facility]) [address] [place] [id number] 5 01/02/2025 09:07:33 01/02/2025 09:49:10 [id number] Z33.1 Gestation period, 31 weeks 12977527 Z3A.31 [id number] Delia Allred MD [facility]) [address] [place] [id number] 5 01/17/2025 08:48:32 01/17/2025 10:30:43 Primigravida 912993598 Z34.03 59838962 - Reviewed permanent nature and potential complicati ons of tubal ligation; patient advised on decision timeline and options including non-hormon al IUD. Gestation period, 34 weeks 21297477 Z3A.34 1325705 - Reinforced standard care; acknowledg ed back pain as typical for , advised monitoring and posture awareness. [id number] Delia Allred MD [facility] ([facility]) [address] [place] [address] 5 01/31/2025 09:38:37 01/31/2025 10:27:42 [id number] Z33.1 Gestation period, 36 weeks 70596787 Z3A.36 4097143 [id number] Delia Allred MD [facility] ([facility]) [address] [place] [address] 5 02/06/2025 09:42:45 02/06/2025 11:32:19 Third trimester 71585683 Z34.93 620543 Gestation period, 36 weeks 58657942 Z3A.36 2655508 [id number] Delia Allred MD [facility] ([facility]) [address] [place] [address] 5 02/13/2025 09:44:07 02/13/2025 10:40:38 [id number] Z33.1 Gestation period, 37 weeks 68296974 Z3A.37 8100312 Health Concerns Section Related Observation LastModified by Organization Detai ls LastModified Time None Recorded Concern Status LastModified by Organization Details LastModified Time None Recorded Advance Directives Directive None Recorded Payers Insurance Date Sequence Insurance Name Policy Number Policy Franklin Covered Member ID Franklin Member ID Guarantor Name 04/01/2024 1 *SELF PAY* Darrion gillespie Paula Orta 04/02/2024 1 *SELF PAY* Darrion verna Orta 11/30/2024 1 [employer] (PPO) [id number] Sagrario Fournier [id number] Sagrario Orta 02/13/2025 1 [id number] [facility]) [id number] Sagrario Orta [id number] Sagrario Orta Notes Date Note Type Note Provider Name and Address Organization Details Recorded Time 5 text/html jr ob routineReported by PatientHPIFor associated symptoms, patient reportsabdominal pain,cramping (intermittent),bleeding (spotting intermittent),nausea,emes is (intermittent),constipati on,edema,dizziness, andbreathlessnessbut reportsno contractions,normal movement,no vaginal discharge,no vaginal/vulvar itching or irritation,no dysuria,no frequency,no urgency,no hematuria,no fever,no diarrhea/loose stool,no visual changes, andno headache.fatigue, breast tenderness, heartburn and acid reflux, vaginal pressure, pelvic painDenies any tobacco, alcohol, or drug useROS as noted in the HPI No change since last visit,still low appetitehas had some random spotting when she goes to the bathroom most of the time it is after intercourse. Delia Allred MD [address] [place] [address], [phone] 01/02/2025 09:48:22 5 text/html ob routineReported by PatientHPIFor associated symptoms, patient reportsabdominal pain,cramping (intermittent),bleeding (spotting intermittent after intercourse),nausea,const ipation,edema (feet/legs),dizziness, andbreathlessnessbut reportsno contractions,normal movement,no vaginal discharge,no vaginal/vulvar itching or irritation,no dysuria,no frequency,no urgency,no hematuria,no fever,no emesis,no diarrhea/loose stool,no visual changes, andno headache.fatigue, breast tenderness, heartburn and acid reflux, vaginal pressure, pelvic painDenies any tobacco, alcohol, or drug useROS as noted in the HPI The patient is a 24-year-old female presenting with a discussion about tubal ligation and alternative contraceptive methods.We discussed the risks and alternatives to a tubal ligation. We discussed the risks of bleeding, infection and damage to intraabdominal organs. We also discussed the increased risk of ectopic and a chance to become again despite a successful tubal ligation. Primigravida: - She is currently in her third trimester, at 34 weeks of gestation. - Expressed a desire to discuss the possibility of tubal ligation. Gestation period, 34 weeks: - She described experiencing persistent back rib pain. - Noted adverse hormonal reactions to prior control methods. Pt would like to talk about getting a tubal ligation. Delia Allred MD [address] [place] [address], [phone], [facility] 01/17/2025 10:23:40 5 text/html jr ob routineReported by PatientHPIFor associated symptoms, patient reportsabdominal pain,cramping,vaginal discharge (heavy),nausea,constipati on,edema (feet/legs),dizziness, andbreathlessnessbut reportsno contractions,normal movement,no bleeding,no vaginal/vulvar itching or irritation,no dysuria,no frequency,no urgency,no hematuria,no fever,no emesis,no diarrhea/loose stool,no visual changes, andno headache.fatigue, breast tenderness, heartburn and acid reflux, vaginal pressure, pelvic painDenies any tobacco, alcohol, or drug useROS as noted in the HPI The patient is a 24-year-old female presenting with a discussion about tubal ligation and alternative contraceptive methods.We discussed the risks and alternatives to a tubal ligation. We discussed the risks of bleeding, infection and damage to intraabdominal organs. We also discussed the increased risk of ectopic and a chance to become again despite a successful tubal ligation. Primigravida: - She is currently in her third trimester, at 34 weeks of gestation. - Expressed a desire to discuss the possibility of tubal ligation. Gestation period, 34 weeks: - She described experiencing persistent back rib pain. - Noted adverse hormonal reactions to prior control methods. Pt would like to talk about getting a tubal ligation. Delia Allred MD [address] [place] [address], [phone], [facility] 01/31/2025 10:27:21 5 text/html jr ob routineReported by PatientHPIFor associated symptoms, patient reportsabdominal pain,cramping,abnormal movement (decreased),vaginal discharge (heavy),nausea,constipati on,edema (feet/legs/hands),dizzine ss, andbreathlessnessbut reportsno contractions,no bleeding,no vaginal/vulvar itching or irritation,no dysuria,no frequency,no urgency,no hematuria,no fever,no emesis,no diarrhea/loose stool,no visual changes, andno headache.fatigue, breast tenderness, heartburn and acid reflux, vaginal pressure, pelvic painDenies any tobacco, alcohol, or drug useROS as noted in the HPI Delia Allred MD [address] [place] [address], [phone], [facility] 02/06/2025 11:28:03 5 text/html jr ob routineReported by PatientHPIFor associated symptoms, patient reportsabdominal pain,cramping,abnormal movement (decreased),vaginal discharge (heavy),nausea,constipati on,diarrhea/loose stool,edema (feet/legs/hands),dizzine ss, andbreathlessnessbut reportsno contractions,no bleeding,no vaginal/vulvar itching or irritation,no dysuria,no frequency,no urgency,no hematuria,no fever,no emesis,no visual changes, andno headache.fatigue, breast tenderness, heartburn and acid reflux, vaginal pressure, pelvic pain,back painDenies any tobacco, alcohol, or drug useROS as noted in the HPI Delia Allred MD [address] [place] [address], [id number], [facility] 02/13/2025 10:39:30 OBGyn Episode Ob Episode Information Episode Created Date Number of Fetuses Patient Bloodtype Patient rh Status Prepregnancy Weight lbs Domestic Partner Domestic Partner Phone Father Name Water Mangle Tender Status 08/21/19 25 1 O Positive Axel Orta OPEN Fetus Data First Name Last Name Admitted to NICU Weight (g) Sex Living Outcome Pediatric Complications Fetus ID Race Codes Race Delivery Type [id number] Problems Problem Notes quad screen desired.Discuss breathing accjhatd06/16/25- order for epidural consult sent to [facility] Problem Name Start Date End Date Resolution Snomed Code Not e Normal in multigravida 08/28/2024 [id number] Sadia Calculation Initial Sadia Date Initial Exam [...] Weight in lbs Pre/Post Dialysis Refused Weight 223.362353330052 BP Diastolic BP Location Tested BP Systolic BP Type 62 126 Fetus Heart Rate Present Fetus Movement Comments Flowsheet Date 08/28/2024 Blackmon Score Blood Edema Fundus Height Fundus Units Glucose Ketones Leukocytes Nitrite Labor Signs Protein Cervic Dilation Cervic Effacement Cervic Station Type Weight in lbs Pre/Post Dialysis Refused Weight 227.1943468062 BP Diastolic BP Location Tested BP Systolic [...] Weight in lbs Pre/Post Dialysis Refused Weight 225.046450299691 BP Diastolic BP Location Tested BP Systolic BP Type 60 122 Fetus Heart Rate Present Fetus Movement Comments Flowsheet Date 09/05/2024 Blackmon Score Blood Edema Fundus Height Fundus Units Glucose Ketones Leukocytes Nitrite Labor Signs Protein Cervic Dilation Cervic Effacement Cervic Station Type Weight in lbs Pre/Post Dialysis Refused Weight 226.497870256979 BP Diastolic BP Location Tested BP Systolic BP Type 64 R arm 120 sitting Fetus Heart Rate Present Fetus Movement Comments Flowsheet Date 09/17/2024 Blackmon Score Blood Edema Fundus Height Fundus Units Glucose Ketones Leukocytes Nitrite Labor Signs Protein Cervic Dilation Cervic Effacement Cervic Station Type Weight in lbs Pre/Post Dialysis Refused Weight 223.138172283107 BP Diastolic BP Location Tested BP Systolic BP Type 70 120 Fetus Heart Rate Present Fetus Movement Comments Flowsheet Date 10/02/2024 Blackmon Score Blood Edema Fundus Height Fundus Units Glucose Ketones Leukocytes Nitrite Labor Signs Protein Cervic Dilation Cervic Effacement Cervic Station none none Negative trace Type Weight in lbs Pre/Post Dialysis Refused Weight 229.1580948228 BP Diastolic BP Location Tested BP Systolic [...] Weight in lbs Pre/Post Dialysis Refused Weight 241.643874429349 BP Diastolic BP Location Tested BP Systolic [...] Weight in lbs Pre/Post Dialysis Refused Weight 240.441340721294 BP Diastolic BP Location Tested BP Systolic [...] Weight in lbs Pre/Post Dialysis Refused Weight 249.930008707234 BP Diastolic BP Location Tested BP Systolic BP Type 70 R arm 124 sitting Fetus Heart Rate Present Fetus Movement Comments Flowsheet Date 12/20/2024 Blackmon Score Blood Edema Fundus Height Fundus Units Glucose Ketones Leukocytes Nitrite Labor Signs Protein Cervic Dilation Cervic Effacement Cervic Station 31 cm none trace Type Weight in lbs Pre/Post Dialysis Refused Weight 243.521699991357 BP Diastolic BP Location Tested BP Systolic [...] Weight in lbs Pre/Post Dialysis Refused Weight 247.205277241191 BP Diastolic BP Location Tested BP Systolic [...] Weight in lbs Pre/Post Dialysis Refused Weight 255.093382393533 BP Diastolic BP Location Tested BP Systolic [...] Weight in lbs Pre/Post Dialysis Refused Weight 257.296244960801 BP Diastolic BP Location Tested BP Systolic [...] Weight in lbs Pre/Post Dialysis Refused Weight 264.398188360671 BP Diastolic BP Location Tested BP Systolic [...] Weight in lbs Pre/Post Dialysis Refused Weight 262.893421735621 BP Diastolic BP Location Tested BP Systolic [...] Estim ated Date of Delivery false Thalassemia (Frisian, South Sudanese, Mediterranean, Or Background): MCV < 80 false Neural Tube Defect (Meningomyelocele, Spina Bifi da, Or Anencephaly) false Congenital Heart Defect false Down Syndrome false Twan-Sachs (eg, Congregation, Cajun, Turkish-Monona) f alse Frances Disease false Sickle Cell Disease Or Trait () false Hemophilia Or Other Blood Disorders false Muscular Dystrophy false Cystic Fibrosis false [place]'s Chorea false Intellectual Disability/Autism false If Yes, [...]
--- NOTE | 2025-02-19 21:44 | CTR_ITS ---
PROCEDURE INFORMATION: Exam: CTA Head With Contrast, Arteriography Exam date and time: 02/19/2025 9:53 PM Age: 24 years old Clinical indication: Weakness; Additional info: Double vision, vertigo, R sided weakness TECHNIQUE: Imaging protocol: Computed tomographic angiography of the head with contrast. Exam focused on the arteries. 3D rendering (Not supervised by radiologist): MIP and/or 3D reconstructed images were created by the technologist. Radiation optimization: All CT scans at this facility use at least one of these dose optimization techniques: automated exposure control; mA and/or kV adjustment per patient size (includes targeted exams where dose is matched to clinical indication); or iterative reconstruction. Contrast material: OMNI 350; Contrast volume: 100 ml; Contrast route: INTRAVENOUS (IV); COMPARISON: CT head thrombolytic [id number] 02/19/2025 9:46 PM RADIATION DOSE METRICS: Total DLP (mGy-cm): 480.79 FINDINGS: ANTERIOR CIRCULATION: Right internal carotid artery: Patent. Right middle cerebral artery: Patent. Right anterior cerebral artery: Patent. Left internal carotid artery: Patent. Left middle cerebral artery: Patent. Left anterior cerebral artery: Patent. POSTERIOR CIRCULATION: Right vertebral artery: Patent. Left vertebral artery: Patent. Basilar artery: Patent. Right posterior cerebral artery: Patent. Left posterior cerebral artery: Patent. PROCEDURE INFORMATION: Exam: CTA Neck With Contrast Exam date and time: 02/19/2025 9:53 PM Age: 24 years old Clinical indication: Weakness; Additional info: Double vision, vertigo, R sided weakness TECHNIQUE: Imaging protocol: Computed tomographic angiography of the neck with contrast. Exam focused on the cervical segments of the vasculature. 3D rendering (Not supervised by radiologist): MIP and/or 3D reconstructed images were created by the technologist. Radiation optimization: All CT scans at this facility use at least one of these dose optimization techniques: automated exposure control; mA and/or kV adjustment per patient size (includes targeted exams where dose is matched to clinical indication); or iterative reconstruction. Contrast material: OMNI 350; Contrast volume: 100 ml; Contrast route: INTRAVENOUS (IV); COMPARISON: CT head thrombolytic [id number] 02/19/2025 9:46 PM RADIATION DOSE METRICS: Total DLP (mGy-cm): 480.79 FINDINGS: Right common carotid artery: Patent. No evidence of hemodynamically significant stenosis. Right internal carotid artery: Patent. No evidence of hemodynamically significant stenosis. Right external carotid artery: Patent. Left common carotid artery: Patent. No evidence of hemodynamically significant stenosis. Left internal carotid artery: Patent. No evidence of hemodynamically significant stenosis. Left external carotid artery: Patent. Right vertebral artery: Patent. Left vertebral artery: Patent. Soft tissues: No gross soft tissue abnormality. No evidence of fluid collection or hematoma. Bones/joints: No evidence of acute fracture or subluxation of the cervical spine. CT/CT angio headneck* [id number] IMPRESSION: 1. No evidence of large vessel occlusion or acute thrombosis in the head. IMPRESSION: 1. No evidence of acute thrombosis or hemodynamically significant stenosis in the neck. REFERENCES: NASCET CRITERIA. The degree of stenosis in the cervical segment of the internal carotid artery is based on NASCET criteria. Normal is no stenosis. Mild is less than 50% stenosis. Moderate is 50-69% stenosis. Severe is 70% to 99% stenosis. Total occlusion is no detectable patent lumen.
--- NOTE | 2025-02-19 21:44 | ECG_ITS ---
[facility] [place] [facility] Date: 2025-02-19 Pat Name: Sagrario Orta Department: Room: Gender: Female Radiation Oncology Manager: : 2000 Requested By: Tanika Lake Order Number: [id number] Kayleen MD: Rickey Chavez M.D. Measurements Intervals [place] Rate: 76 P: 29 W[place]: 133 QRS: -2 QRSD: 79 T: 20 QT: 367 QTc: 414 Interpretive Statements SINUS RHYTHM LOW QRS VOLTAGE IN PRECORDIAL LEADS [QRS DEFLECTION < 1.0 mV IN CHEST LEADS] POSSIBLE ANTERIOR MYOCARDIAL INFARCTION , PROBABLY OLD [30 ms Q WAVE IN V3/V4, OR R < 0.2 mV IN V4] No previous ECG available for comparison Electronically Signed On 02-20-2025 23:47:40 PHOTOCOPYING MACHINE OPERATOR by Rickey Chavez M.D. [email or web address]
--- NOTE | 2025-02-19 21:44 | CTR_ITS ---
PROCEDURE INFORMATION: Exam: CT Head Without Contrast Exam date and time: 02/19/2025 9:46 PM Age: 24 years old Clinical indication: Stroke-like symptoms; RT upper extremity and RT lower extremity weakness; Additional info: Symptoms of acute stroke TECHNIQUE: Imaging protocol: Computed tomography of the head without contrast. Radiation optimization: All CT scans at this facility use at least one of these dose optimization techniques: automated exposure control; mA and/or kV adjustment per patient size (includes targeted exams where dose is matched to clinical indication); or iterative reconstruction. Other technique: STROKE PROTOCOL was implemented. COMPARISON: No relevant prior studies available. RADIATION DOSE METRICS: Total DLP (mGy-cm): 781.42 FINDINGS: Brain: No evidence of intra-axial or extra-axial hemorrhage. No mass effect or midline shift. Arrington-white differentiation is maintained. Basilar cisterns are patent. Cerebral ventricles: No hydrocephalus. Paranasal sinuses: The visualized paranasal sinuses are well aerated. Mastoid air cells: The visualized mastoids and middle ears are clear. Bones: Calvarium is intact. No evidence of acute fracture. Soft tissues: No gross soft tissue abnormality. CT/CT head thrombolytic [id number] IMPRESSION: 1. No acute intracranial abnormality. ASSESSMENT: ASPECTS ([place] Stroke Program Early CT Score) is 10.
--- NOTE | 2025-02-19 21:45 | ED_ITS ---
HPI - General Adult 2 General: Chief complaint: Neuro Symptoms/Deficit Stated complaint: Possible preeclampsia Time Seen by Provider: 02/19/25 21:43 History of Present Illness: 24yo F w/cc of vision changes, double vi arnoldo, vertigo, RUE and RLE weakness. Symptom onset was 21:15 this evening, starting with vision changes. I saw this patient as she was roomed in the emergency department; activated stroke alert. She is s/p spontaneous vaginal delivery on 02/17/2025. Patient states that around 21:15 this evening, she started experiencing left-sided vision changes, then right-sided which developed into double vision associated with spinning sensation. This lasted on and off for approximately 15 minutes. Patient also states that at some point she developed right upper and lower extremity weakness and is tremulous. Patient has not been ill with a fever, denies chest pain or shortness of breath. She has not experienced any abdominal pain, nausea or vomiting. She denies any copious vaginal bleeding, dysuria, hematuria or change in bowel habits. Patient has not experienced any sensory changes or paresthesias. She denies difficulty with coordination. She has not had any difficulty with confusion, speech, swallowing. She is not experiencing a headache or neck pain. She states that as a child, she suffered from seizures but that has resolved around age 1. Related Data Home Medications ?Medication ?Instructions ?Recorded ?Confirmed vits no.133-ferrous 1 tab PO DAILY 02/16/25 1 04/19/24 fumarate 28 mg-folic acid 800 mcg tablet () Previous Rx's ?Medication ?Instructions ?Recorded ibuprofen 800 mg tablet 800 mg PO TID #45 tabs 02/18 Allergies Allergy/AdvReac Type Severity Reaction Status Date / Time apple Allergy ALGY-Rash Verified 02/19/25 21:55 cauliflower Allergy ADR-Abdominal Verified 02/19/25 21:55 Pain kidney lazaro Allergy Unknown Verified 02/19/25 21:55 onion Allergy ALGY-Difficulty Verified 02/19/25 21:55 Breathing broccoli AdvReac ADR-Vomitin Verified 02/19/25 21:55 g cantaloupe AdvReac ADR-Vomitin Verified 02/19/25 21:55 g grape AdvReac ADR-Abdominal Verified 02/19/25 21:55 Pain honeydew AdvReac ADR-Vomitin Verified 02/19/25 21:55 g pear AdvReac ADR-Abdominal Verified 02/19/25 21:55 Pain magdaleno Allergy Severe ALGY-Anaphy Uncoded 02/19/25 21:55 laxis PFSH ED 2 PFSH: Social History Smoking and tobacco/nicotine status: never used tobacco/nicotine Physical Exam 2 Narrative: EXAM NARRATIVE: Vital signs were reviewed. Patient is alert and oriented. Patient is breathing comfortably, no increased WOB or accessory muscle use. SpO2 is above 95% on RA. Patient has clear lungs b/l, no rhonchi, wheezing or crackles. No hypotension or tachycardia. Abdomen is soft, nondistended and nontender. Patient is moving all extremities, no deformity or gross injury. No lower extremity edema or asymmetry. Patient is tremulous. Neuro: Awake, alert. +RUE and RLE drift. No weakness on the left side. No sensory deficit. Able to perform FNF, heel to toribio. Ambulatory. CRANIAL NERVES: II: Pupils equal and reactive, no visual field deficits. III, IV, : EOM intact, no gaze preference or deviation, no nystagmus. V: normal sensation in V1, V2, and V3 segments bilaterally VII: no asymmetry, no nasolabial fold flattening VIII: normal hearing to speech IX, X: normal palatal elevation, no uvular deviation XI: 5/5 head turn and 5/5 shoulder shrug bilaterally XII: midline tongue protrusion Course 2 Vital Signs: Vital signs: Vital Signs Temperature 98.5 F 02/19/25 21:34 Pulse Rate 77 02/19/25 23:30 Respiratory Rate 16 02/19/25 23:30 Blood Pressure 128/75 02/19/25 23:30 Pulse Oximetry 97 02/19/25 23:30 Oxygen Delivery Me thod Room Air 02/19/25 23:00 MDM - General Adult Medical Decision Making 24yo F w/cc of vision change, double vision, vertigo, RUE/RLE weakness, LNK 21:15 this evening. Differential diagnosis includes but is not limited to, migraine with aura, status migrainosus, seizure, eclampsia/preeclampsia, CVA, aneurysm, dissection, MS, other. On exam she is HDS. NIH is 2 for RUE/RLE drift. Vision changes have resolved on my exam. She was evaluated per stroke protocol, neurology consulted. CT head is negative for acute ICH. CTA head/neck: IMPRESSION: 1. No evidence of large vessel occlusion or acute thrombosis in the head. Discussed w/neurologist Dr. Maurer who recommended against thrombolytics at this time as she feels this is consistent w/a stroke mimic. On reexamination, patient's visual changes have resolved, she is not experiencing vertigo and her right sided weakness is also resolving/improving. She is noted to be using her phone with right hand w/o difficulty. Dr. Maurer recommended inpatient admission, MRI of the brain. Admitted. Lab Data 02/19/25 21:56 02/19/25:[address] 02/19/25: IMPRESSION: 1. No acute intracranial abnormality. ASSESSMENT: ASPECTS ([place] Stroke Program Early CT Score) is 10. ADDENDUM: 02/19/252158 The findings were verbally communicated by telephone with Dr. Lake at 9:58 PM CLINICAL EDUCATION ASSISTANT on 02/19/2025. Head/Neck CTA 02/19/25 21:44 IMPRESSION: 1. No evidence of large vessel occlusion or acute thrombosis in the head. IMPRESSION: 1. No evidence of acute thrombosis or hemodynamically significant stenosis in the neck. REFERENCES: NASCET CRITERIA. The degree of stenosis in the cervical segment of the internal carotid artery is based on NASCET criteria. Normal is no stenosis. Mild is less than 50% stenosis. Moderate is 50-69% stenosis. Severe is 70% to 99% stenosis. Total occlusion is no detectable patent lumen. Laboratory Results WBC 12.84 10^3/uL (3.29-11.43) H 02/19/25: RBC 4.08 10^6/uL (3.85-5.65) 02/19/25 21:56 Hgb 10.80 g/dL (11.27-16.99) L 02/19/25 21:56 Hct 33.1 % (36-47) L 02/19/25 21: MCV 81.1 fl (85-98) L 02/19/25 21:56 MCH 26.5 pg (27-33) L 11/04/25 21:56 MCHC 32.6 g/dL (30-55) 02/19/25 21:56 RDW 13.9 % (12.1-15.1) 02/19/25 21:56 Plt Count 297 10^3/cmm (157-399) 02/19/25 21:56 MPV 9.5 fL (7.4-10.4) 02/19/25 21:56 Neut % (Auto) 68.2 % 02/19/25 21:56 Lymph % (Auto) 21.0 % 02/19/25 21:56 [place]oshone % (Auto) 5.5 % 02/19/25 21:56 Eos % (Auto) 4.2 % 02/19/25 21:56 Baso % (Auto) 0.5 % 02/19/25 21:56 Neut # (Auto) 8.75 10^3/uL (1.8-7.7) H 02/19/25 21:56 Lymph # (Auto) 2.7 10^3/uL (0.8-4.8) 02/19/25 21:56 Shoshone # (Auto) 0.7 10^3/uL (0.2-0.9) 02/19/25 21:56 Eos # (Auto) 0.5 10^3/uL (0.0-0.8) 02/19/25 21:56 Baso # (Auto) 0.1 10^3/uL (0.0-0.1) 02/19/25 21:56 Nucleated RBC % (auto) 0 % 02/19/25 21:56 Nucleated RBCs # 0.0 /100WBC 02/19/25 21:56 PT 10.80 SECONDS (12.1-14.9) L 02/19/25 21:56 INR 0.72 (0.8-1.2) L 02/19/25 21:56 APTT 24.0 SECONDS (23.9-36.7) 02/19/25 21:56 Sodium 136 mmol/L (136-145) 02/19/25 21:56 Potassium 4.1 mmol/L (3.5-5.1) 02/19/25 21:56 Chloride 102 mmol/L (98-107) 02/19/25 21:56 Carbon Dioxide 23 mmol/L (22-29) 02/19/25 21:56 Anion Gap 15.1 (5-19) 02/19/25 21:56 BUN 12 mg/dL (6-20) 02/19/25 21:56 Creatinine 1.0 mg/dL (0.5-0.9) H 02/19/25 21:56 GFR Calculation 67.6 mL/min (90-130) L 02/19/25 21:56 Glucose 94 mg/dL (65-115) 02/19/25 21:56 Calculated Osmolality 282 mOsm/kg (285-295) L 02/19/25 21:56 Calcium 8.5 mg/dL (8.5-10.5) 02/19/25 21:56 Total Bilirubin 0.2 mg/dL (0.15-1.2) 02/19/25 21:56 AST 24 U/L (0-32) 02/19/25 21:56 ALT 15 U/L (0-33) 02/19/25 21:56 Alkaline Phosphatase 144 U/L (35-105) H 02/19/25 21:56 Total Protein 6.3 g/dL (6.6-8.7) L 02/19/25 21:56 Albumin 3.4 g/dL (3.5-5.2) L 02/19/25 21:56 Globulin 2.9 g/dL (1.3-4.6) 02/19/25 21:56 Urine Color Red (Yellow) A 02/19/25 21:41 Urine Appearance Cloudy (CLEAR) A 02/19/25 21:41 Urine pH 7.0 (5-7) 02/19/25 21:41 Ur Specific Lloyd 1.008 (1.005-1.030) 02/19/25 21:41 Urine Protein 1+ (Negative) A 02/19/25 21:41 Urine Glucose (UA) Negative (Normal) 02/19/25 21: Urine Ketones Negative (Negative) 02/19/25 21:41 Urine Blood 3+ (Negative) A 02/19/25 21:41 Urine Nitrate Negative (Negative) 02/19/25 21:41 Urine Bilirubin Negative (Negative) 02/19/25 21:41 Urine Urobilinogen 0.2 mg/dL (Negative) 02/19/25 21:41 Ur Leukocyte Esterase 3+ (Negative) A 02/19/25 21:41 Urine RBC >100 /hpf (0-2) H 02/19/25 21:41 Urine WBC >100 /hpf (0-5) H 02/19/25 21:41 Ur Squamous Epith Cells 0-5 /hpf (0-5) 02/19/25 21:41 Amorphous Sediment Not Reportable 02/19/25 21:41 Urine Bacteria None seen /hpf (NONE) 02/19/25 21:41 Hyaline Casts 0.81 /lpf 02/19/25 21:41 Urine Yeast Trace /hpf 02/19/25 21:41 Urine Opiates Screen Negative ng/mL (Negative) 02/19/25 21:41 Ur Barbiturates Screen Negative ng/mL (Negative) 02/19/25 21:41 Ur Phencyclidine Scrn Negative ng/mL (Negative) 02/19/25 21:41 Ur Amphetamines Screen Negative ng/mL (Negative) 02/19/25 21:41 U Benzodiazepines Scrn Negative ng/mL (Negative) 02/19/25 21:41 Urine Cocaine Screen Negative ng/mL (Negative) 02/19/25 21:41 U Marijuana (THC) Screen Negative ng/mL (Negative) 02/19/25 21:41 All radiology interpretation(s) finalized by discharge Discharge Plan Discharge Patient Disposition: Admitted As Inpatient Clinical Impression: Transient neurological symptoms Condition: Stable Coding Level of Care Code ED Lab Animal Technician for Sulma Edwards
--- NOTE | 2025-02-19 21:56 | PC.NURSE ---
PT TRIAGE DELAYED WHEN CHECK-IN THROUGH ER REGISTRATION DUE TO PT NEEDING TO USE BATHROOM. THIS RN WENT TO CALL PT AND PT WAS NOT IN WR. ER REGISTRATION BROUGHT PT TO TRIAGE DOOR WHEN DONE.
[2025-02-19] MEDS: iohexol 350 mg/mL 500 mL Btl (per mL) IV (21:57)
[2025-02-19 22:03] LABS: Hematocrit 33.1 % (36-47); Hemoglobin 10.80 g/dL (11.27-16.99); Mean Corpuscular HGB Conc 32.6 g/dL (30-55); Mean Corpuscular Hemoglobin 26.5 pg (27-33); Mean Corpuscular Volume 81.1 fl (85-98); Nucleated Red Blood Cells % 0 %; Platelet Count 297 10^3/cmm (157-399); Red Blood Count 4.08 10^6/uL (3.85-5.65); White Blood Count 12.84 10^3/uL (3.29-11.43)
[2025-02-19 22:22] LABS: INR 0.72 (0.8-1.2); Prothrombin Time 10.80 SECONDS (12.1-14.9)
[2025-02-19 22:23] LABS: Partial Thromboplastin Time 24.0 SECONDS (23.9-36.7)
[2025-02-19 22:27] LABS: Alanine Aminotransferase 15 U/L (0-33); Albumin Level 3.4 g/dL (3.5-5.2); Alkaline Phosphatase 144 U/L (35-105); Anion Gap 15.1 (5-19); Aspartate Amino Transferase 24 U/L (0-32); Blood Urea Nitrogen 12 mg/dL (6-20); Calcium 8.5 mg/dL (8.5-10.5); Carbon Dioxide 23 mmol/L (22-29); Chloride 102 mmol/L (98-107); Globulin 2.9 g/dL (1.3-4.6); Glucose 94 mg/dL (65-115); Osmolality Calculated 282 mOsm/kg (285-295); Potassium 4.1 mmol/L (3.5-5.1); Sodium 136 mmol/L (136-145); Total Protein 6.3 g/dL (6.6-8.7)
[2025-02-19 22:29] LABS: Glucose Urine UA Negative (Normal); Nitrate Urine Negative (Negative); Specific Gravity, Urine 1.008 (1.005-1.030)
[2025-02-19 22:31] LABS: Add Urine Microscopic? YES
[2025-02-19 22:37] LABS: PCP Screen Urine Negative (Negative)
[2025-02-20] VITALS (8 sets, daily range): BP systolic 106–150; BP diastolic 65–93; PULSE 74–88; RESP 16–21; TEMP 36.5–36.8; O2SAT 92–98
--- NOTE | 2025-02-20 01:03 | P.HP_ITS ---
Providers/Chief Complaint 2 Admitting Physician: Ladonna Chicas MD--- Primary Care Provider: Todd Davidson MD Chief Complaint: Possible preeclampsia History of Present Illness Sagrario Orta is a 24 year old female with no significant medical history. Patient just gave to a healthy baby 2 days ago and on this day of presentation started having blurry vision double vision dizziness but no chest pain no shortness of breath. Patient came in as a code stroke. No tPA was done there is not anything leading to anything except for the fact that patient has neurological symptom. And this is a sign to be a TIA. Patient did okay and now is to follow through with an MRI of the brain in the morning and once it is okay then patient can go home. I have also checked up on the patient throughout the night and he she denies any complaints. The baby was in the room with her and her . Review of Systems 2 Narrative: System review upon 10 ongoing review of system done where unremarkable except for this transitory blurry vision double vision and dizziness and all have resolved with no ill effect. Medications/Allergies Home Medications ?Medication ?Instructions ?Recorded ?Confirmed ?Last Taken ?Type vits no.133-ferrous 1 tab PO DAILY 02/16/25 1 04/22/24 02/19/25 History fumarate 28 mg-folic acid 800 mcg tablet () ibuprofen 800 mg tablet 800 mg PO TID PRN Pain 02/2002/20/25 Unknown History Allergies Allergy/AdvReac Type Severity Reaction Status Date / Time apple Allergy ALGY-Rash Verified 02/19/25 21:55 cauliflower Allergy ADR-Abdominal Verified 02/19/25 21:55 Pain kidney lazaro Allergy Unknown Verified 02/19/25 21:55 onion Allergy ALGY-Difficulty Verified 02/19/25 21:55 Breathing broccoli AdvReac ADR-Vomitin Verified 02/19/25 21:55 g cantaloupe AdvReac ADR-Vomitin Verified 02/19/25 21:55 g grape AdvReac ADR-Abdominal Verified 02/19/25 21:55 Pain honeydew AdvReac ADR-Vomitin Verified 02/19/25 21:55 g pear AdvReac ADR-Abdominal Verified 02/19/25 21:55 Pain magdaleno Allergy Severe ALGY-Anaphy Uncoded 02/19/25 21:55 laxis PFSH Acute 2 PFSH: Social History Smoking and tobacco/nicotine status: never used tobacco/nicotine Vitals/I&O/Wt Last Vital Signs Temp 98.5 F 02/19/25 21:34 Pulse 88 02/20/25 00:15 Resp 21 H 02/20/25 00:00 BP 150/83 02/20/25 00:15 Pulse Ox 97 02/20/25 00:15 O2 Del Method Room Air 02/20/25 00:32 Weight last 48 hrs Weight 115.212 kg Physical Exam 2 Narrative: Generally patient looks well in no apparent distress very healthy. HEENT normocephalic/atraumatic neck neck is supple cardiovascular heart rate is regular lungs are pretty much clear abdomen soft nontender nondistended unremarkable extremities are intact no edema has good pulses neurology has no focality lab studies lab studies reviewed and noted Data 02/20/25 04:59 02/20/25 04:59 A&P Assessment and plan 1. Urinary tract infection: 2. Transient neurological symptoms: 3. Spontaneous vaginal delivery: 4. Preeclampsia: 5. 38 weeks gestation of : 6. Bacterial UTI: 7. TIA (transient ischemic attack): Plan: TIA - Patient symptoms are transitory no further double vision blurry vision dizziness everything resolved patient had done well overnight. MRI ordered and pending this morning CT we are unremarkable patient was called as a code stroke. No tPA needed. Urinary tract infection patient does have UTI and antibiotics initiated with ceftriaxone GI and DVT prophylaxis in place PDMP PDMP Reviewed: Last Reviewed 02/20/25 08:45 by Ladonna Chicas MD Attestations 2 Medical Necessity Statement*: This is a 23-hour observation. Coding Level of Care Code Acute Code for g Fwd Diagnoses Urinary tract infection N39.0 Transient neurological symptoms R29.818 Spontaneous vaginal delivery O80 Preeclampsia O14.90 38 weeks gestation of Z3A.38 Bacterial UTI N39.0; A49.9 TIA (transient ischemic attack) G45.9 Time Spent (min) 60
[2025-02-20] MEDS: cefTRIAXone 1,000 mg SDV 1000 MG IVP (02:17)
[2025-02-20 05:53] LABS: Hematocrit 34.8 % (36-47); Hemoglobin 11.30 g/dL (11.27-16.99); Mean Corpuscular HGB Conc 32.5 g/dL (30-55); Mean Corpuscular Hemoglobin 27.0 pg (27-33); Mean Corpuscular Volume 83.3 fl (85-98); Nucleated Red Blood Cells % 0 %; Platelet Count 348 10^3/cmm (157-399); Red Blood Count 4.18 10^6/uL (3.85-5.65); White Blood Count 12.95 10^3/uL (3.29-11.43)
[2025-02-20 06:18] LABS: Magnesium 2.1 mg/dL (1.7-2.3)
[2025-02-20 06:19] LABS: Alanine Aminotransferase 17 U/L (0-33); Albumin Level 3.5 g/dL (3.5-5.2); Alkaline Phosphatase 148 U/L (35-105); Anion Gap 16.5 (5-19); Aspartate Amino Transferase 24 U/L (0-32); Blood Urea Nitrogen 14 mg/dL (6-20); Calcium 8.6 mg/dL (8.5-10.5); Carbon Dioxide 23 mmol/L (22-29); Chloride 104 mmol/L (98-107); Creatinine Clr Calc Pharmacy 147.9568; Globulin 2.5 g/dL (1.3-4.6); Glucose 79 mg/dL (65-115); Osmolality Calculated 287 mOsm/kg (285-295); Potassium 4.5 mmol/L (3.5-5.1); Sodium 139 mmol/L (136-145); Total Protein 6.0 g/dL (6.6-8.7)
--- NOTE | 2025-02-20 07:08 | PC.NURSE ---
pt refused morning meds due to the possibility of it passing to breast milk.
--- NOTE | 2025-02-20 08:58 | MR_ITS ---
WS: [id number] MRI BRAIN WITHOUT CONTRAST HISTORY: stroke like sx/MRI BRAIN COMPARISON: None available. TECHNIQUE: Diffusion imaging, multiplanar T1, T2 and FLAIR imaging obtained. Normal diffusion imaging. There are a few very subtle areas of minimal increased T2 and FLAIR signal in the subcortical white matter of the posterior RIGHT frontal and parietal lobes. This may be a small amount of edema. This is a very subtle finding. No additional abnormality noted on other sequences. No remote or acute infarcts or volume loss. Ventricles and extra-axial spaces are normal. No inferior displacement of cerebellar tonsils. The sella turcica and pituitary gland are unremarkable. Dural venous sinuses and [place] of [place] demonstrate no abnormality on this unenhanced studies. Paranasal sinuses: Clear. Mastoid air cells: Normal. Calvarium and scalp: Intact. MR/MR head wo con* [id number] IMPRESSION: 1. Normal diffusion imaging. No acute infarct. 2. No volume loss or hemorrhage. 3. Very subtle areas of increased T2 signal in the posterior RIGHT frontal and parietal lobes. These changes may be related to normal volume averaging. With the patient's history consider subtle changes related to tube acute hypertensiv e encephalopathy, PRES. Consider follow-up MRI brain in 4 to 6 weeks to ensure resolution.
--- NOTE | 2025-02-20 09:29 | PC.CHAP ---
Pastoral Care Encounter/Spiritual Assessment Type of Contact [] Declined nurse technician visit [] Patient/Family/Request visit [] Outpatient visit [] Follow-up visit [] Physician referral [] Code/Alert [x] Routine visit [] Staff referral [] Actively dying [] Patient sleeping [x] Family support [] [] Out of room [] Palliative care [] [] Receiving care in room [] Pre-surgical visit [] Trauma [] Long length of stay [] ICU visit [] Other: Relational/Emotional Strength [x] Patient feels connected with others/family/visitors/staff [] Distress [] Loneliness/isolation [] Abandonment Spirituality of Patient [x] Person of [place] [] Attends Anabaptism of their [place] [x] Believes in Prayer [] Reads Bible or Yazidi materials [] There are Spiritual issues to be addressed Inspector Wreath Interventions [x] Prayer [x Active listening [x] Non-anxious presence [x] Spiritual/emotional support [] Crisis/trauma care [] Spiritual counseling [] Bereavement support [] Provided bereavement packet [x] Provided Bible/devotional materials [] Provided toy/stuffed animal, coloring book to patient or family member [] Provided Communion [] Anointing/[place] [] Salvation [x] Completed spiritual assessment [] Other: Impact on Illness or Injury [] Angry [] Fearful [] Anxious [] Often cries [] Exhaustion [] Unable to work [] Unable to attend quaker [] Unable to walk/stand [] Unable to read [] Unable to drive [] Unable to eat/drink [] Unable to sleep [] Unable to be with family [] Patient intubated [] Other: Summary Time spent with patient 10 min
[2025-02-20 09:46] LABS: Uric Acid 6.1 mg/dL (2.4-5.7)
--- NOTE | 2025-02-20 11:04 | PM.DCS ---
Discharge Providers Date of Admission: 02/19/25 23:27 Date of Discharge: February 20, 2025 Attending Provider at Admission: Ladonna Chicas MD Attending Provider at Discharge: Maurizio Bishop MD Primary Care Provider: Todd Davidson MD Diagnoses at Discharge Discharge Diagnosis 1. Urinary tract infection: 2. Transient neurological symptoms: 3. Spontaneous vaginal delivery: 4. Preeclampsia: 5. 38 weeks gestation of : 6. Bacterial UTI: 7. TIA (transient ischemic attack): Reason for Visit Reason for Visit: Possible preeclampsia Brief History: Per HPI Sagrario Orta is a 24 year old female with no significant medical history. Patient just gave to a healthy baby 2 days ago and on this day of presentation started having blurry vision double vision dizziness but no chest pain no shortness of breath. Patient came in as a code stroke. No tPA was done there is not anything leading to anything except for the fact that patient has neurological symptom. And this is a sign to be a TIA. Patient did okay and now is to follow through with an MRI of the brain in the morning and once it is okay then patient can go home. I have also checked up on the patient throughout the night and he she denies any complaints. The baby was in the room with her and her . Hospital Course Hospital Course Patient was admitted to the hospital further evaluation and management. Her symptoms had resolved while being admitted from ER. She did not have any further symptoms during hospitalization. Stroke was ruled out with negative CT and CTA head and neck. Given patient being for 2 days, possible preeclampsia prior to delivery there was concern for eclampsia. Care were discussed in detail with patient's outpatient ORDER TAKERS SUPERVISOR. UA was +1+ for protein. During hospitalization blood pressures remained stable. Uric acid and urine albumin ratio was checked. MRI was done which was concerning for possible subtle changes related to tube acute hypertensive encephalopathy, PRES. She has been discharged in hemodynamically stable condition with advised to monitor blood pressures at home and to maintain a blood pressure diary and to follow-up with her ORDER TAKERS SUPERVISOR at the earliest. Discharge plan were discussed in detail with the patient and she verbalized understanding. Physical Exam Narrative: Generally patient looks well in no apparent distress very healthy. HEENT normocephalic/atraumatic neck neck is supple cardiovascular heart rate is regular lungs are pretty much clear abdomen soft nontender nondistended unremarkable extremities are intact no edema has good pulses neurology has no focality lab studies lab studies reviewed and noted Discharge Data Studies Completed and Pending Completed Studies During Hospitalization Category Date Time Status CT head thrombolytic [id number] Stat Cat Scan 02/19/25 21:44 Completed CTA head neck [CT angio headneck* [id number]] Stat Cat Scan 02/19/25 21:44 Completed MR head wo con* [id number] Routine MRI 02/20/25 08:58 Completed Pending at discharge Category Date Time Status Cardiac Stress Test MIBI [Sestamibi Stress Test Request Exams 02/20/25 02:08 Stop Req ] Routine Complete Blood Count w/Auto AM LABS Lab 02/21/25 04:00 Ordered Magnesium AM LABS Lab 02/21/25 04:00 Ordered Urine Culture Stat Lab 02/19/25 21:41 Received Urine Microalbumin Creat Ratio Routine Lab 02/20/25 09:05 Ordered Radiology Impressions Head CT 02/19/25 21:44 IMPRESSION: 1. No acute intracranial abnormality. ASSESSMENT: ASPECTS (Areli Stroke Program Early CT Score) is 10. ADDENDUM: 02/19/252158 The findings were verbally communicated by telephone with Dr. Lake at 9:58 PM OIL SEPARATOR on 02/19/2025. Head/Neck CTA 02/19/25 21:44 IMPRESSION: 1. No evidence of large vessel occlusion or acute thrombosis in the head. IMPRESSION: 1. No evidence of acute thrombosis or hemodynamically significant stenosis in the neck. REFERENCES: NASCET CRITERIA. The degree of stenosis in the cervical segment of the internal carotid artery is based on NASCET criteria. Normal is no stenosis. Mild is less than 50% stenosis. Moderate is 50-69% stenosis. Severe is 70% to 99% stenosis. Total occlusion is no detectable patent lumen. Head MRI 02/20/25 08:58 IMPRESSION: 1. Normal diffusion imaging. No acute infarct. 2. No volume loss or hemorrhage. 3. Very subtle areas of increased T2 signal in the posterior RIGHT frontal and parietal lobes. These changes may be related to normal volume averaging. With the patient's history consider subtle changes related to tube acute hypertensive encephalopathy, PRES. Consider follow-up MRI brain in 4 to 6 weeks to ensure resolution. Laboratory Results WBC 12.95 10^3/uL (3.29-11.43) H 02/20/25 04:59 RBC 4.18 10^6/uL (3.85-5.65) 02/20/25 04:59 Hgb 11.30 g/dL (11.27-16.99) 02/20/25 04:59 Hct 34.8 % (36-47) L 02/20/25 04:59 MCV 83.3 fl (85-98) L 02/20/25 04:59 MCH 27.0 pg (27-33) 02/20/25 04:59 MCHC 32.5 g/dL (30-55) 02/20/25 04:59 RDW 14.1 % (12.1-15.1) 02/20/25 04:59 Plt Count 348 10^3/cmm (157-399) 02/20/25 04:59 MPV 9.7 fL (7.4-10.4) 02/20/25 04:59 Neut % (Auto) 64.8 % 02/20/25 04:59 Lymph % (Auto) 24.8 % 02/20/25 04:59 Giles % (Auto) 4.9 % 02/20/25 04:59 Eos % (Auto) 4.0 % 02/20/25 04:59 Baso % (Auto) 0.7 % 02/20/25 04:59 Neut # (Auto) 8.40 10^3/uL (1.8-7.7) H 02/20/25 04:59 Lymph # (Auto) 3.2 10^3/uL (0.8-4.8) 02/20/25 04:59 Giles # (Auto) 0.6 10^3/uL (0.2-0.9) 02/20/25 04:59 Eos # (Auto) 0.5 10^3/uL (0.0-0.8) 02/20/25 04:59 Baso # (Auto) 0.1 10^3/uL (0.0-0.1) 02/20/25 04:59 Nucleated RBC % (auto) 0 % 02/20/25 04:59 Nucleated RBCs # 0.0 /100WBC 02/20/25 04:59 PT 10.80 SECONDS (12.1-14.9) L 02/19/25 21:56 INR 0.72 (0.8-1.2) L 02/19/25 21:56 APTT 24.0 SECONDS (23.9-36.7) 02/19/25 21:56 Sodium 139 mmol/L (136-145) 02/20/25 04:59 Potassium 4.5 mmol/L (3.5-5.1) 02/20/25 04:59 Chloride 104 mmol/L (98-107) 02/20/25 04:59 Carbon Dioxide 23 mmol/L (22-29) 02/20/25 04:59 Anion Gap 16.5 (5-19) 02/20/25 04:59 BUN 14 mg/dL (6-20) 02/20/25 04:59 Creatinine 0.8 mg/dL (0.5-0.9) 02/20/25 04:59 GFR Calculation 87.4 mL/min (90-130) L 02/20/25 04:59 Glucose 79 mg/dL (65-115) 02/20/25 04:59 Calculated Osmolality 287 mOsm/kg (285-295) 02/20/25 04:59 Uric Acid 6.1 mg/dL (2.4-5.7) H 02/20/25 04:59 Calcium 8.6 mg/dL (8.5-10.5) 02/20/25 04:59 Phosphorus 4.2 mg/dL (2.5-4.5) 02/20/25 04:59 Magnesium 2.1 mg/dL (1.7-2.3) 02/20/25 04:59 Total Bilirubin 0.2 mg/dL (0.15-1.2) 02/20/25 04:59 AST 24 U/L (0-32) 02/20/25 04:59 ALT 17 U/L (0-33) 02/20/25 04:59 Alkaline Phosphatase 148 U/L (35-105) H 02/20/25 04:59 Total Protein 6.0 g/dL (6.6-8.7) L 02/20/25 04:59 Albumin 3.5 g/dL (3.5-5.2) 02/20/25 04:59 Globulin 2.5 g/dL (1.3-4.6) 02/20/25 04:59 Urine Color Red (Yellow) A 02/19/25 21: Urine Appearance Cloudy (CLEAR) A 02/19/25 21: Urine pH 7.0 (5-7) 02/19/25 21:41 Ur Specific [place] 1.008 (1.005-1.030) 02/19/25 21:41 Urine Protein 1+ (Negative) A 02/19/25 21: Urine Glucose (UA) Negative (Normal) 02/19/25 21: Urine Ketones Negative (Negative) 02/19/25 21: Urine Blood 3+ (Negative) A 02/19/25 21: Urine Nitrate Negative (Negative) 02/19/25 21: Urine Bilirubin Negative (Negative) 02/19/25 21: Urine Urobilinogen 0.2 mg/dL (Negative) 02/19/25 21:41 Ur Leukocyte Esterase 3+ (Negative) A 02/19/25 21:41 Urine RBC >100 /hpf (0-2) H 02/19/25 21:41 Urine WBC >100 /hpf (0-5) H 02/19/25 21:41 Ur Squamous Epith Cells 0-5 /hpf (0-5) 02/19/25 21:41 Amorphous Sediment Not Reportable 02/19/25 21:41 Urine Bacteria None seen /hpf (NONE) 02/19/25 21:41 Hyaline Casts 0.81 /lpf 02/19/25 21:41 Urine Yeast Trace /hpf 02/19/25 21:41 Urine Opiates Screen Negative ng/mL (Negative) 02/19/25 21:41 Ur Barbiturates Screen Negative ng/mL (Negative) 02/19/25 21:41 Ur Phencyclidine Scrn Negative ng/mL (Negative) 02/19/25 21:41 Ur Amphetamines Screen Negative ng/mL (Negative) 02/19/25 21:41 U Benzodiazepines Scrn Negative ng/mL (Negative) 02/19/25 21:41 Urine Cocaine Screen Negative ng/mL (Negative) 02/19/25 21:41 U Marijuana (THC) Screen Negative ng/mL (Negative) 02/19/25 21:41 Vitals Last Vital Signs Temp 97.9 F 02/20/25 10:00 Pulse 87 11/05/25 10:00 Resp 20 H 02/20/25 10:00 BP 123/77 02/20/25 10:00 Pulse Ox 98 02/20/25 08:00 O2 Del Method Room Air 02/20/25 08:00 Discharge Plan Discharge Patient Disposition: Home Condition: Stable Prescriptions: Continued ibuprofen 800 mg tablet 800 mg PO TID PRN (Reason: Pain) 28-800 mg-mcg Tablet 1 tab PO DAILY Discharge Order = DC NOW: Discharge Order (Routine); Ordered 02/20/25 Ordered By: Maurizio Bishop Referrals: Todd Davidson MD [Primary Care Provider, Family Practice] - 02/21/25 1:50 pm Patient Instructions: Transient Ischemic Attack (GEN), Opioid Safety, Stroke Stoplight, Patient Portal & Omer Instructions Activity Restrictions/Additional Instructions: Please maintain a blood pressure diary and to follow-up with her ORDER TAKERS SUPERVISOR at the earliest. Discharge plan were discussed in detail with the patient and she verbalized understanding. Discharge Attestations Time Spent in Discharge Care*: greater than 30 min Specific Discharge Activities: educating patient, educating and/or supporting family/caregiver, discussing with pcp/other providers, discussing with immigration case worker/social workers/dc planners, documenting/other paperwork and evaluating patient/reviewing data Status at Discharge: Cognitive status at discharge: cognitively intact, Behavioral status at discharge: cooperative, Functional status at discharge: independent ambulation, Overall status at discharge: patient is back to baseline Quality Metrics Clinical Quality Measures [ No reported AMI, CVA or VTE this stay] Coding Level of Care Code 70738 Total time (in minutes) for Discharge: 65 Diagnoses Urinary tract infection N30.01 Hematuria presence: with hematuria Urinary tract infection type: acute cystitis Transient neurological symptoms R29.818 Spontaneous vaginal delivery O80 Preeclampsia O14.90 38 weeks gestation of Z3A.38 Bacterial UTI N39.0; A49.9 TIA (transient ischemic attack) G45.9
== END 2025-02-20 13:00 | disposition home or self-care (01) ==
LOC: ER 23:58 → MEDSURG 02-20 00:19
PROVIDERS: Admitting Provider Internal Medicine; Emergency Provider Emergency Medicine; PCP Family Medicine; Visit Provider Student in an Organized Health Care Education/Training Program
DX: G45.9 Transient cerebral ischemic attack, unspecified (principal); N39.0 Urinary tract infection, site not specified; A49.9 Bacterial infection, unspecified
CPT/HCPCS: 36415; 70450; 70496; 70498; 70551; 80053; 80306; 81001; 83735; 84100; 84550; 85025; 85610; 85730; 87086; 93005; 96374; 96376; 99285; G0378; J0696; J9999